=== PATIENT | female | born 1960 | race Caucasian/White ===

== ENCOUNTER 2017-04-19 21:51 | Emergency (ER) | payer OTHER ==
[~2017-04-19] VITALS: Ht 170.2 cm; Wt 102.1 kg
[2017-04-19 22:43] LABS: Basophils # (auto) 0 uL; CONDITION Y; Eosinophils # (auto) 0.1 uL; Eosinophils % (auto) 0.4 % (0.0-7.0); Hematocrit 44.3 % (36.0-46.0); Hemoglobin 14.8 g/dL (12.2-16.2); Lymphocytes # (auto) 1.5 uL; Lymphocytes % (auto) 8.4 % (10.0-50.0); Mean Corpuscular Hemoglobin 30.3 pg (28.0-32.0); Mean Corpuscular Hgb Conc. 33.4 g/dL (32.0-36.0); Mean Corpuscular Volume 90.8 fL (80.0-100.0); Monocytes # (auto) 1.4 uL; Monocytes % (auto) 7.9 % (0.0-12.0); Neutrophils % (auto) 83.3 % (37.0-80.0); Platelet Count (auto) 369 10^3/uL (140-450); Red Cell Distribution Width 15.2 % (11.6-16.0); White Blood Cell 18.1 10^3/uL (4.4-10.8)
[2017-04-19 23:02] LABS: Albumin 3.1 g/dL (3.4-5.0); BUN/Creatinine Ratio 35.6; Calcium 9.1 mg/dL (8.5-10.1); Potassium 3.5 mmol/L (3.5-5.1)
[2017-04-19 23:05] LABS: Bilirubin, Total 0.5 mg/dL (0.2-1.0); Total Protein 6.7 g/dL (6.4-8.2)
[2017-04-20 00:02] LABS: Urine Bilirubin Negative (Negative); Urine Blood 3+ /uL (Negative); Urine Color Red (Yellow); Urine Glucose 3+ mg/dL (Normal); Urine Ketone Negative (Negative); Urine Nitrite Negative (Negative); Urine RBC 38 /hpf (0 - 4); Urine Urobilinogen Normal (Negative); Urine pH 5.5 (5.0-8.0)
[2017-04-20] MEDS ORDERED: cefTRIAXone 1GM/50ML D5W 50 ML IV ONE (02:15)
[2017-04-20 06:12] VITALS: BP 106/67
== END 2017-04-20 06:42 | disposition home or self-care (01) ==
LOC: EDBD 21:51 → ER 21:55
DX: K80.20 Calculus of gallbladder without cholecystitis without obstruction (principal); N20.0 Calculus of kidney; Z88.0 Allergy status to penicillin; K21.9 Gastro-esophageal reflux disease without esophagitis; E11.9 Type 2 diabetes mellitus without complications
CPT/HCPCS: 36415; 74176; 80053; 81001; 83605; 85025; 96365; 99285; J0696

== ENCOUNTER 2022-07-06 14:30 | Inpatient (IN) | payer OTHER ==
[~2022-07-06] VITALS: Ht 160 cm; Wt 108.5 kg
[2022-07-06] MEDS ORDERED: ALBUTEROL SULF 2.5 MG/0.5ML(0.5%) NEB SOLN HHN ONE (15:15)
[2022-07-06] MEDS ORDERED: IPRATROPIUM BROM 0.5 MG/2.5ML INH SOL HHN ONE (15:15)
[2022-07-06] MEDS ORDERED: methylPREDNISolone SOD SUCC 125 MG/2 ML VL IV ONE (15:15)
[2022-07-06 16:58] LABS: Basophils # (auto) 0.1 10 ^3/uL (0-0.2); Basophils % (auto) 0.8 % (0.0-2.0); Eosinophils # (auto) 0 10 ^3/uL (0-0.8); Eosinophils % (auto) 0.2 % (0.0-7.0); Hematocrit 38.3 % (36.0-46.0); Hemoglobin 12.2 g/dL (12.2-16.2); Lymphocytes # (auto) 0.7 10 ^3/uL (0.4-5.4); Lymphocytes % (auto) 6.1 % (10.0-50.0); Mean Corpuscular Hemoglobin 25.6 pg (28.0-32.0); Mean Corpuscular Hgb Conc. 31.8 g/dL (32.0-36.0); Mean Corpuscular Volume 80.5 fL (80.0-100.0); Monocytes # (auto) 1.3 10 ^3/uL (0-1.3); Monocytes % (auto) 11.6 % (0.0-12.0); Neutrophils # (auto) 8.8 10 ^3/uL (1.6-8.6); Neutrophils % (auto) 81.3 % (37.0-80.0); Red Blood Cells 4.76 10^6/uL (4.0-5.20); Red Cell Distribution Width 17.4 % (11.8-14.3); White Blood Cell 10.8 10^3/uL (4.4-10.8)
[2022-07-06] MEDS ORDERED: FUROSEMIDE 40 MG/4 ML VIAL IV ONE (17:00)
[2022-07-06 17:22] LABS: Albumin 2.9 g/dL (3.4-5.0); BUN/Creatinine Ratio 24.4; Calcium 8.5 mg/dL (8.5-10.1); Magnesium 2.1 mg/dL (1.6-2.6); Potassium 3.8 mmol/L (3.5-5.1)
[2022-07-06 17:24] LABS: Bilirubin, Total 0.6 mg/dL (0.2-1.0); Total Protein 6.8 g/dL (6.4-8.2)
[2022-07-06] MEDS ORDERED: AZITHROMYCIN 500MG/ 250ML 250 ML IV ONE (20:30)
[2022-07-06] MEDS ORDERED: ALBUTEROL SULF 2.5 MG/0.5ML(0.5%) NEB SOLN NEB ONE (20:45)
[2022-07-06] MEDS ORDERED: MORPHINE SULFATE INJ 2 MG/ml SYRG IV PRN (21:15)
[2022-07-06] MEDS ORDERED: NITROGLYCERIN 0.4 MG SL TAB SL PRN (21:15)
[2022-07-06] MEDS ORDERED: TEMAZEPAM 15 MG CAP PO PRN (21:45)
[2022-07-06] MEDS ORDERED: DEXTROSE (50%) 50ML SYRG IV PRN (21:45)
[2022-07-06] MEDS ORDERED: ONDANSETRON HCL 4 MG/2 ML VIAL IV PRN (21:45)
[2022-07-06] MEDS: ATORVASTATIN 20 MG TAB PO SCH (22:40)
[2022-07-06] MEDS: ASCORBIC ACID 500 MG TAB PO SCH (22:40)
[2022-07-06] MEDS: InsuLIN REG 1unit/0.01ml Soln (100units/ml) SC SCH (22:52)
[2022-07-06] MEDS: ACCU-CHEK COMFORT CURVE STRIP VI SCH (22:54)
[2022-07-07 00:03] VITALS: BP 125/67
[2022-07-07] MEDS: IPRATROPIUM BROM 0.5 MG/2.5ML INH SOL NEB SCH ×3 (06:00→18:42)
[2022-07-07] MEDS: ALBUTEROL SULF 2.5 MG/0.5ML(0.5%) NEB SOLN NEB SCH ×3 (06:00→18:42)
[2022-07-07] MEDS: ACCU-CHEK COMFORT CURVE STRIP VI SCH ×3 (06:25→17:49)
[2022-07-07] MEDS: InsuLIN REG 1unit/0.01ml Soln (100units/ml) SC SCH ×3 (06:29→17:54)
[2022-07-07 06:47] LABS: Basophils # (auto) 0.1 10 ^3/uL (0-0.2); Eosinophils # (auto) 0 10 ^3/uL (0-0.8); Hemoglobin 11.8 g/dL (12.2-16.2); Lymphocytes # (auto) 0.2 10 ^3/uL (0.4-5.4); Lymphocytes % (auto) 1.6 % (10.0-50.0); Monocytes # (auto) 1.1 10 ^3/uL (0-1.3)
[2022-07-07 06:49] LABS: Basophils % (auto) 0.6 % (0.0-2.0); Hematocrit 36.8 % (36.0-46.0); Mean Corpuscular Hemoglobin 25.6 pg (28.0-32.0); Mean Corpuscular Hgb Conc. 32.2 g/dL (32.0-36.0); Mean Corpuscular Volume 79.5 fL (80.0-100.0); Neutrophils # (auto) 11.1 10 ^3/uL (1.6-8.6); Neutrophils % (auto) 88.8 % (37.0-80.0); Red Blood Cells 4.63 10^6/uL (4.0-5.20); Red Cell Distribution Width 17.1 % (11.8-14.3); White Blood Cell 12.4 10^3/uL (4.4-10.8)
[2022-07-07 07:13] LABS: Albumin 2.7 g/dL (3.4-5.0); BUN/Creatinine Ratio 31.3; Calcium 8.9 mg/dL (8.5-10.1); Potassium 3.9 mmol/L (3.5-5.1)
[2022-07-07 07:22] LABS: Bilirubin, Total 0.5 mg/dL (0.2-1.0); Total Protein 7.5 g/dL (6.4-8.2)
[2022-07-07] MEDS: AZITHROMYCIN 500MG/ 250ML 250 ML IV SCH (09:58)
[2022-07-07] MEDS: dilTIAZem HCL 180MG ER CAP PO SCH (10:00)
[2022-07-07] MEDS ORDERED: ENOXAPARIN SOD 40 MG/0.4 ML SYRINGE SC SCH (10:00)
[2022-07-07] MEDS: DexAMETHasone SOD PHOS 10MG/1ML VIAL INJ IV SCH (10:00)
[2022-07-07] MEDS: ASPirin 81 mg TAB PO SCH (10:08)
[2022-07-07] MEDS: PANTOPRAZOLE 40 MG TAB PO SCH (10:09)
[2022-07-07] MEDS: ZINC SULFATE 220mg CAP or TAB PO SCH (10:09)
[2022-07-07] MEDS: MULTIPLE VITAMIN TAB PO SCH (10:09)
[2022-07-07] MEDS: FUROSEMIDE 40 MG TAB PO SCH (10:10)
[2022-07-07] MEDS: ASCORBIC ACID 500 MG TAB PO SCH (10:10)
[2022-07-07] MEDS: DIGOXIN 0.125 MG TAB PO SCH (10:10)
[2022-07-07] MEDS: DABIGATRAN 75 MG CAP PO SCH ×2 (10:17→22:00)
[2022-07-07] MEDS ORDERED: PATIENTS OWN MEDICATION (REMDESIVIR 200 MG) IV SCH (11:00)
[2022-07-07] MEDS ORDERED: REMDESIVIR PER PHARMACY 0 ML IV SCH (12:00)
[2022-07-07] MEDS ORDERED: REMDESIVIR 200 MG in NS 210ml LOADING DOSE ADULT IV ONE (12:00)
[2022-07-07] MEDS ORDERED: REMDESIVIR 100mg 100 MG in SODIUM CHL 0.9% 230 ML IV SCH (15:00)
[2022-07-08] VITALS (38 sets, daily range): BP systolic 94–138; BP diastolic 25–69
[2022-07-08] MEDS: ATORVASTATIN 20 MG TAB PO SCH ×2 (00:55→22:08)
[2022-07-08] MEDS: ASCORBIC ACID 500 MG TAB PO SCH ×3 (00:55→22:08)
[2022-07-08] MEDS: InsuLIN REG 1unit/0.01ml Soln (100units/ml) SC SCH ×5 (00:56→22:11)
[2022-07-08] MEDS: ACCU-CHEK COMFORT CURVE STRIP VI SCH ×5 (00:57→22:09)
[2022-07-08] MEDS ORDERED: ROCURONIUM 10MG/ML 10ML VIAL IV ONE ×2 (05:02→05:15)
[2022-07-08] MEDS ORDERED: KETAMINE HCL 10 ML ONE (05:02)
[2022-07-08] MEDS ORDERED: KETAMINE 50mg/ML 10ml Vial (500mg/10ml) IV ONE (05:15)
[2022-07-08] MEDS: MIDAZOLAM DRIP 50 mg/50mL 50 ML IV SCH ×5 (05:45→22:50)
[2022-07-08] MEDS: fentaNYL Drip 2500mCg/250mlNS 250 ML IV SCH (05:45)
[2022-07-08] MEDS: ALBUTEROL SULF 2.5 MG/0.5ML(0.5%) NEB SOLN NEB SCH ×3 (06:00→18:20)
[2022-07-08] MEDS: IPRATROPIUM BROM 0.5 MG/2.5ML INH SOL NEB SCH ×3 (06:00→18:20)
[2022-07-08] MEDS ORDERED: ACETAMINOPHEN 650 MG RECT SUPP PR PRN (06:50)
[2022-07-08 09:11] LABS: Hemoglobin 11.9 g/dL (12.2-16.2); White Blood Cell 15.8 10^3/uL (4.4-10.8)
[2022-07-08 09:13] LABS: Hematocrit 37.5 % (36.0-46.0); Mean Corpuscular Hemoglobin 25.3 pg (28.0-32.0); Mean Corpuscular Hgb Conc. 31.8 g/dL (32.0-36.0); Mean Corpuscular Volume 79.4 fL (80.0-100.0); Red Blood Cells 4.72 10^6/uL (4.0-5.20)
[2022-07-08 09:19] LABS: Basophils % (manual) 0 (0.0-2.0); Blast Cells 0; Metamyelocytes % 0; Myelocytes % 0; Promyelocytes % 0; Reactive Lymphocytes 0
[2022-07-08 09:39] LABS: BUN/Creatinine Ratio 40.3; Calcium 8.5 mg/dL (8.5-10.1)
[2022-07-08 09:50] LABS: Band Neutrophils % (manual) 13; Eosinophils % (manual) 1 (0-7); Lymphocytes % (manual) 2 (10.0-50.0); Monocytes % (manual) 10 (0-12)
[2022-07-08 11:08] LABS: Albumin 2.5 g/dL (3.4-5.0); Bilirubin, Direct 0.3 mg/dL (0-0.2); Bilirubin, Total 0.7 mg/dL (0.2-1.0); Total Protein 6.4 g/dL (6.4-8.2)
[2022-07-08] MEDS: DexAMETHasone SOD PHOS 10MG/1ML VIAL INJ IV SCH (11:30)
[2022-07-08] MEDS: PANTOPRAZOLE 40 MG TAB PO SCH (11:31)
[2022-07-08] MEDS: AZITHROMYCIN 500MG/ 250ML 250 ML IV SCH (11:32)
[2022-07-08] MEDS: DIGOXIN 0.125 MG TAB PO SCH (11:32)
[2022-07-08] MEDS: FUROSEMIDE 40 MG TAB PO SCH (11:34)
[2022-07-08] MEDS: ASPirin 81 mg TAB PO SCH (11:53)
[2022-07-08] MEDS: MULTIPLE VITAMIN TAB PO SCH (11:53)
[2022-07-08] MEDS: ZINC SULFATE 220mg CAP or TAB PO SCH (11:53)
[2022-07-08] MEDS: dilTIAZem HCL 180MG ER CAP PO SCH (11:53)
[2022-07-08] MEDS: DABIGATRAN 75 MG CAP PO SCH ×3 (11:53→22:08)
[2022-07-08] MEDS: NOREPINEPHRINE 8 MG/250ML KIT 250 ML IV SCH (16:42)
[2022-07-08] MEDS: REMDESIVIR 100mg 100 MG in SODIUM CHL 0.9% 230 ML IV SCH (19:31)
[2022-07-08] MEDS ORDERED: DABI150C5 PO (19:40)
[2022-07-08] MEDS ORDERED: DIGO0.12 PO (19:40)
[2022-07-08] MEDS ORDERED: POTA10TA51 PO (19:40)
[2022-07-08] MEDS ORDERED: AZAT50TA2 PO (19:40)
[2022-07-08] MEDS ORDERED: DILT60TA PO (19:40)
[2022-07-08] MEDS ORDERED: AMIO200T33 PO (19:40)
[2022-07-08] MEDS ORDERED: ATOR-47 PO (19:40)
[2022-07-08] MEDS ORDERED: ERGO50003 PO (19:40)
[2022-07-08] MEDS ORDERED: METF-370 PO (19:40)
[2022-07-09] VITALS (98 sets, daily range): BP systolic 91–162; BP diastolic 28–66
[2022-07-09] MEDS: MIDAZOLAM DRIP 50 mg/50mL 50 ML IV SCH ×5 (01:50→19:50)
[2022-07-09 04:30] LABS: Calcium 8.7 mg/dL (8.5-10.1)
[2022-07-09 04:36] LABS: BUN/Creatinine Ratio 51.6; Bilirubin, Total 0.8 mg/dL (0.2-1.0); Total Protein 6.6 g/dL (6.4-8.2)
[2022-07-09 04:42] LABS: Potassium 4.7 mmol/L (3.5-5.1)
[2022-07-09] MEDS: fentaNYL Drip 2500mCg/250mlNS 250 ML IV SCH ×2 (05:30→05:45)
[2022-07-09] MEDS: IPRATROPIUM BROM 0.5 MG/2.5ML INH SOL NEB SCH ×3 (06:55→18:29)
[2022-07-09] MEDS: ALBUTEROL SULF 2.5 MG/0.5ML(0.5%) NEB SOLN NEB SCH ×3 (06:55→18:29)
[2022-07-09] MEDS: ACCU-CHEK COMFORT CURVE STRIP VI SCH ×4 (06:56→22:31)
[2022-07-09] MEDS: InsuLIN REG 1unit/0.01ml Soln (100units/ml) SC SCH ×4 (06:56→23:03)
[2022-07-09] MEDS: ASPirin 81 mg TAB PO SCH (10:11)
[2022-07-09] MEDS: DexAMETHasone SOD PHOS 10MG/1ML VIAL INJ IV SCH (10:11)
[2022-07-09] MEDS: DIGOXIN 0.125 MG TAB PO SCH (10:17)
[2022-07-09] MEDS: ZINC SULFATE 220mg CAP or TAB PO SCH (10:17)
[2022-07-09] MEDS: ASCORBIC ACID 500 MG TAB PO SCH ×2 (10:17→22:31)
[2022-07-09] MEDS: AZITHROMYCIN 500MG/ 250ML 250 ML IV SCH (10:18)
[2022-07-09] MEDS: MULTIPLE VITAMIN TAB PO SCH (10:18)
[2022-07-09] MEDS: FUROSEMIDE 40 MG TAB PO SCH (10:18)
[2022-07-09] MEDS: PANTOPRAZOLE 40 MG TAB PO SCH (10:18)
[2022-07-09] MEDS: NOREPINEPHRINE 8 MG/250ML KIT 250 ML IV SCH (11:00)
[2022-07-09] MEDS: PANTOPRAZOLE 40 MG/10 ML VIAL INJ IV SCH (11:51)
[2022-07-09] MEDS: DABIGATRAN 75 MG CAP PO SCH ×2 (13:43→22:31)
[2022-07-09] MEDS: dilTIAZem HCL 60 MG TAB NG SCH ×2 (13:52→22:00)
[2022-07-09] MEDS: REMDESIVIR 100mg 100 MG in SODIUM CHL 0.9% 230 ML IV SCH (15:08)
[2022-07-09] MEDS: ATORVASTATIN 20 MG TAB PO SCH (22:30)
[2022-07-10] VITALS (70 sets, daily range): BP systolic 90–133; BP diastolic 24–40
[2022-07-10] MEDS: MIDAZOLAM DRIP 50 mg/50mL 50 ML IV SCH ×5 (00:24→20:17)
[2022-07-10] MEDS: ACETAMINOPHEN 325 MG TAB PO PRN ×2 (01:34→10:54)
[2022-07-10 05:46] LABS: Potassium 4.3 mmol/L (3.5-5.1)
[2022-07-10 05:49] LABS: Albumin 1.9 g/dL (3.4-5.0); BUN/Creatinine Ratio 55.3; Calcium 8.6 mg/dL (8.5-10.1)
[2022-07-10] MEDS: fentaNYL Drip 2500mCg/250mlNS 250 ML IV SCH (05:50)
[2022-07-10 05:53] LABS: Bilirubin, Total 0.6 mg/dL (0.2-1.0); Total Protein 5.4 g/dL (6.4-8.2)
[2022-07-10] MEDS: dilTIAZem HCL 60 MG TAB NG SCH ×3 (05:59→22:00)
[2022-07-10] MEDS: ACCU-CHEK COMFORT CURVE STRIP VI SCH ×4 (06:28→22:25)
[2022-07-10] MEDS: InsuLIN REG 1unit/0.01ml Soln (100units/ml) SC SCH ×4 (06:29→22:28)
[2022-07-10] MEDS: IPRATROPIUM BROM 0.5 MG/2.5ML INH SOL NEB SCH ×4 (06:52→22:42)
[2022-07-10] MEDS: ALBUTEROL SULF 2.5 MG/0.5ML(0.5%) NEB SOLN NEB SCH ×4 (06:52→22:42)
[2022-07-10] MEDS: DexAMETHasone SOD PHOS 10MG/1ML VIAL INJ IV SCH (10:33)
[2022-07-10] MEDS: PANTOPRAZOLE 40 MG/10 ML VIAL INJ IV SCH (10:33)
[2022-07-10] MEDS: ASPirin 81 mg TAB PO SCH (10:33)
[2022-07-10] MEDS: DABIGATRAN 75 MG CAP PO SCH (10:34)
[2022-07-10] MEDS: ASCORBIC ACID 500 MG TAB PO SCH ×2 (10:34→22:25)
[2022-07-10] MEDS: FUROSEMIDE 40 MG TAB PO SCH (10:35)
[2022-07-10] MEDS: MULTIPLE VITAMIN TAB PO SCH (10:35)
[2022-07-10] MEDS: ZINC SULFATE 220mg CAP or TAB PO SCH (10:36)
[2022-07-10] MEDS: AZITHROMYCIN 500MG/ 250ML 250 ML IV SCH (10:36)
[2022-07-10] MEDS: DIGOXIN 0.125 MG TAB PO SCH (10:37)
[2022-07-10] MEDS: NOREPINEPHRINE 8 MG/250ML KIT 250 ML IV SCH (15:06)
[2022-07-10] MEDS: REMDESIVIR 100mg 100 MG in SODIUM CHL 0.9% 230 ML IV SCH (15:35)
[2022-07-10 16:53] LABS: Basophils # (auto) 0.1 10 ^3/uL (0-0.2); Basophils % (auto) 0.3 % (0.0-2.0); Eosinophils # (auto) 0 10 ^3/uL (0-0.8); Eosinophils % (auto) 0.1 % (0.0-7.0); Hematocrit 38.5 % (36.0-46.0); Hemoglobin 11.7 g/dL (12.2-16.2); Lymphocytes # (auto) 0.2 10 ^3/uL (0.4-5.4); Lymphocytes % (auto) 0.8 % (10.0-50.0); Mean Corpuscular Hgb Conc. 30.3 g/dL (32.0-36.0); Mean Corpuscular Volume 82.5 fL (80.0-100.0); Monocytes % (auto) 6.7 % (0.0-12.0); Neutrophils # (auto) 26.8 10 ^3/uL (1.6-8.6); Neutrophils % (auto) 92.1 % (37.0-80.0); Nucleated Red Blood Cells % 0.2 %; Red Blood Cells 4.67 10^6/uL (4.0-5.20); White Blood Cell 29.1 10^3/uL (4.4-10.8)
[2022-07-10 17:11] LABS: INR 1.18 (0.9-1.15); Partial Thromboplastin Time 30.8 sec (24.6-33.4)
[2022-07-10] MEDS ORDERED: VANCOMYCIN PER PHARMACY 0 MG IV SCH (19:15)
[2022-07-10] MEDS: VANCOMYCIN 1GM/250ML 250 ML IV SCH (20:17)
[2022-07-10] MEDS: ATORVASTATIN 20 MG TAB PO SCH (22:25)
[2022-07-10] MEDS ORDERED: HEPARIN SODIUM (PORCINE) 5000 UNITS/ML 1ML VIAL IV ONE (23:00)
[2022-07-10] MEDS ORDERED: HEPARIN DRIP/D5W 100UNITS/ML 250 ML IV SCH (23:00)
[2022-07-10 23:40] LABS: INR 1.18 (0.9-1.15); Partial Thromboplastin Time 39.9 sec (24.6-33.4)
[2022-07-11] VITALS (87 sets, daily range): BP systolic 95–124; BP diastolic 26–44
[2022-07-11] MEDS: MIDAZOLAM DRIP 50 mg/50mL 50 ML IV SCH ×4 (01:40→21:53)
[2022-07-11] MEDS: IPRATROPIUM BROM 0.5 MG/2.5ML INH SOL NEB SCH ×6 (02:08→22:22)
[2022-07-11] MEDS: ALBUTEROL SULF 2.5 MG/0.5ML(0.5%) NEB SOLN NEB SCH ×6 (02:08→22:22)
[2022-07-11 03:51] LABS: Hematocrit 31.7 % (36.0-46.0); Hemoglobin 10.1 g/dL (12.2-16.2); Mean Corpuscular Hemoglobin 25.4 pg (28.0-32.0); Mean Corpuscular Volume 79.3 fL (80.0-100.0); Red Blood Cells 3.99 10^6/uL (4.0-5.20); Red Cell Distribution Width 17.5 % (11.8-14.3)
[2022-07-11 04:22] LABS: Basophils % (manual) 0 (0.0-2.0); Blast Cells 0; Eosinophils % (manual) 0 (0-7); Myelocytes % 0; Promyelocytes % 0; Reactive Lymphocytes 0
[2022-07-11] MEDS: dilTIAZem HCL 60 MG TAB NG SCH (06:00)
[2022-07-11] MEDS: fentaNYL Drip 2500mCg/250mlNS 250 ML IV SCH (06:06)
[2022-07-11] MEDS: VANCOMYCIN 1GM/250ML 250 ML IV SCH ×3 (06:06→20:55)
[2022-07-11 06:13] LABS: INR 1.24 (0.9-1.15)
[2022-07-11 06:15] LABS: Partial Thromboplastin Time > 139.0 sec (24.6-33.4)
[2022-07-11] MEDS: InsuLIN REG 1unit/0.01ml Soln (100units/ml) SC SCH ×4 (06:37→23:57)
[2022-07-11] MEDS: ACCU-CHEK COMFORT CURVE STRIP VI SCH ×5 (06:38→23:56)
[2022-07-11 09:11] LABS: Band Neutrophils % (manual) 8; Lymphocytes % (manual) 1 (10.0-50.0); Metamyelocytes % 1; Monocytes % (manual) 3 (0-12)
[2022-07-11] MEDS: DIGOXIN 0.125 MG TAB PO SCH (10:00)
[2022-07-11] MEDS: PANTOPRAZOLE 40 MG/10 ML VIAL INJ IV SCH (10:14)
[2022-07-11] MEDS: AZITHROMYCIN 500MG/ 250ML 250 ML IV SCH (10:14)
[2022-07-11] MEDS: DexAMETHasone SOD PHOS 10MG/1ML VIAL INJ IV SCH (10:14)
[2022-07-11] MEDS: ASPirin 81 mg TAB PO SCH (10:15)
[2022-07-11] MEDS: MULTIPLE VITAMIN TAB PO SCH (10:15)
[2022-07-11] MEDS: ASCORBIC ACID 500 MG TAB PO SCH (10:15)
[2022-07-11] MEDS: ZINC SULFATE 220mg CAP or TAB PO SCH (10:15)
[2022-07-11] MEDS: FUROSEMIDE 40 MG TAB PO SCH (10:23)
[2022-07-11] MEDS ORDERED: CEFTRIAXONE SODIUM 2 GM in D5W 5% 50 ML IV ONE (12:30)
[2022-07-11] MEDS ORDERED: LIDOCAINE 1% (LOCAL ANESTH.) PF 5ml SDV ID ONE (15:15)
[2022-07-11] MEDS: REMDESIVIR 100mg 100 MG in SODIUM CHL 0.9% 230 ML IV SCH (16:08)
[2022-07-11] MEDS: NOREPINEPHRINE 8 MG/250ML KIT 250 ML IV SCH (16:23)
[2022-07-11] MEDS ORDERED: DEXTROSE (50%) 50ML SYRG IV PRN (17:00)
[2022-07-11] MEDS ORDERED: ACCU-CHEK COMFORT CURVE STRIP VI SCH (18:00)
[2022-07-11 18:29] LABS: Anion Gap 9 (5-15); Carbon Dioxide 28 mmol/L (21-32); Chloride 106 mmol/L (98-107); Potassium 4.1 mmol/L (3.5-5.1); Sodium 143 mmol/L (136-145)
[2022-07-11 18:30] LABS: Alanine Aminotransferase 29 U/L (13-56); Albumin 1.6 g/dL (3.4-5.0); Alkaline Phosphatase 84 U/L (45-117); Aspartate Aminotransferase 32 U/L (15-37); BUN/Creatinine Ratio 45.8; Bilirubin, Total 0.6 mg/dL (0.2-1.0); Blood Urea Nitrogen 22 mg/dL (7-18); GFR African American 168 mL/min; GFR Non-African American 139 mL/min; Glucose 297 mg/dL (74-106); Total Protein 6.1 g/dL (6.4-8.2)
[2022-07-11 18:49] LABS: Urine Amorphous Crystal FEW /hpf (None Seen); Urine Bacteria MOD /hpf (None Seen); Urine Blood Negative /uL (Negative); Urine Hyaline Cast FEW /lpf (0 - 2); Urine Mucus FEW (None Seen); Urine Specific Gravity 1.021 (1.001-1.035); Urine WBC 29 /hpf (0 - 5)
[2022-07-11] MEDS: SODIUM CHLOR 0.9% PF (SALINE LOCK) 10ML VIAL/SYR IV SCH (21:34)
[2022-07-11] MEDS: ENOXAPARIN SOD 100 MG/1 ML SYRINGE SC SCH (21:34)
[2022-07-11] MEDS: INSULIN LANTUS (GLARGINE) 1 /0.01ml (100units/ml) SC SCH (21:34)
[2022-07-12] VITALS (106 sets, daily range): BP systolic 103–147; BP diastolic 26–70
[2022-07-12] MEDS: IPRATROPIUM BROM 0.5 MG/2.5ML INH SOL NEB SCH ×6 (02:00→21:55)
[2022-07-12] MEDS: ALBUTEROL SULF 2.5 MG/0.5ML(0.5%) NEB SOLN NEB SCH ×6 (02:00→21:55)
[2022-07-12] MEDS: VANCOMYCIN 1GM/250ML 250 ML IV SCH ×3 (02:05→22:11)
[2022-07-12 04:01] LABS: Hematocrit 32.5 % (36.0-46.0); Hemoglobin 10.2 g/dL (12.2-16.2); Mean Corpuscular Hgb Conc. 31.4 g/dL (32.0-36.0); White Blood Cell 23.4 10^3/uL (4.4-10.8)
[2022-07-12 04:03] LABS: Mean Corpuscular Hemoglobin 24.7 pg (28.0-32.0); Mean Corpuscular Volume 78.6 fL (80.0-100.0); Red Blood Cells 4.14 10^6/uL (4.0-5.20); Red Cell Distribution Width 17.5 % (11.8-14.3)
[2022-07-12 04:23] LABS: Albumin 1.5 g/dL (3.4-5.0); BUN/Creatinine Ratio 44.4; Calcium 8.2 mg/dL (8.5-10.1); Potassium 4.5 mmol/L (3.5-5.1)
[2022-07-12 04:25] LABS: Basophils % (manual) 0 (0.0-2.0); Bilirubin, Total 0.4 mg/dL (0.2-1.0); Blast Cells 0; Eosinophils % (manual) 0 (0-7); Metamyelocytes % 0; Promyelocytes % 0; Reactive Lymphocytes 0; Total Protein 5.1 g/dL (6.4-8.2)
[2022-07-12] MEDS: InsuLIN REG 1unit/0.01ml Soln (100units/ml) SC SCH ×3 (06:29→18:21)
[2022-07-12] MEDS: ACCU-CHEK COMFORT CURVE STRIP VI SCH ×3 (06:29→17:53)
[2022-07-12] MEDS: INSULIN LANTUS (GLARGINE) 1 /0.01ml (100units/ml) SC SCH ×2 (06:30→22:12)
[2022-07-12] MEDS: MIDAZOLAM DRIP 50 mg/50mL 50 ML IV SCH ×2 (06:53→22:34)
[2022-07-12] MEDS: MULTIPLE VITAMIN TAB PO SCH (08:14)
[2022-07-12] MEDS: ENOXAPARIN SOD 100 MG/1 ML SYRINGE SC SCH ×2 (08:14→22:10)
[2022-07-12] MEDS: ZINC SULFATE 220mg CAP or TAB PO SCH (08:14)
[2022-07-12] MEDS: SODIUM CHLOR 0.9% PF (SALINE LOCK) 10ML VIAL/SYR IV SCH ×2 (08:16→22:12)
[2022-07-12 09:29] LABS: Band Neutrophils % (manual) 6; Lymphocytes % (manual) 2 (10.0-50.0); Monocytes % (manual) 5 (0-12); Myelocytes % 3
[2022-07-12] MEDS ORDERED: ATROPINE SULFATE 1 MG/1 ML VIAL ONE (10:24)
[2022-07-12] MEDS: NOREPINEPHRINE 8 MG/250ML KIT 250 ML IV SCH (11:00)
[2022-07-12] MEDS: CEFTRIAXONE SODIUM 2 GM in D5W 5% 50 ML IV SCH (12:08)
[2022-07-12] MEDS: PANTOPRAZOLE 40 MG/10 ML VIAL INJ IV SCH (12:08)
[2022-07-12] MEDS ORDERED: Glucerna 1.2 Cal 1Liter BOTTLE GT SCH (13:30)
[2022-07-12] MEDS ORDERED: METOCLOPRAMIDE HCL 5MG/ml INJ 2ml VIAL IV ONE (13:30)
[2022-07-12] MEDS: Glucerna 1.2 Cal 1Liter BOTTLE GT SCH (18:22)
[2022-07-12] MEDS ORDERED: Pro-Stat SF 30ml Vanilla GT SCH (22:00)
[2022-07-12] MEDS: METOCLOPRAMIDE HCL 5MG/ml INJ 2ml VIAL IV SCH (22:10)
[2022-07-12] MEDS: Pro-Stat SF 30ml Vanilla GT SCH (22:11)
[2022-07-13] VITALS (83 sets, daily range): BP systolic 95–133; BP diastolic 24–73
[2022-07-13] MEDS: ACCU-CHEK COMFORT CURVE STRIP VI SCH ×4 (00:08→18:23)
[2022-07-13] MEDS: InsuLIN REG 1unit/0.01ml Soln (100units/ml) SC SCH ×4 (00:08→18:26)
[2022-07-13] MEDS: ALBUTEROL SULF 2.5 MG/0.5ML(0.5%) NEB SOLN NEB SCH ×6 (02:00→22:40)
[2022-07-13] MEDS: IPRATROPIUM BROM 0.5 MG/2.5ML INH SOL NEB SCH ×6 (02:00→22:40)
[2022-07-13] MEDS: fentaNYL Drip 2500mCg/250mlNS 250 ML IV SCH (05:45)
[2022-07-13] MEDS: INSULIN LANTUS (GLARGINE) 1 /0.01ml (100units/ml) SC SCH ×2 (06:47→22:32)
[2022-07-13] MEDS: METOCLOPRAMIDE HCL 5MG/ml INJ 2ml VIAL IV SCH ×3 (06:47→22:20)
[2022-07-13] MEDS: Pro-Stat SF 30ml Vanilla GT SCH ×2 (10:35→22:24)
[2022-07-13] MEDS: VANCOMYCIN 1GM/250ML 250 ML IV SCH ×2 (10:35→18:23)
[2022-07-13] MEDS: ZINC SULFATE 220mg CAP or TAB PO SCH (10:36)
[2022-07-13] MEDS: PANTOPRAZOLE 40 MG/10 ML VIAL INJ IV SCH (10:36)
[2022-07-13] MEDS: MULTIPLE VITAMIN TAB PO SCH (10:36)
[2022-07-13] MEDS: SODIUM CHLOR 0.9% PF (SALINE LOCK) 10ML VIAL/SYR IV SCH ×2 (10:36→22:21)
[2022-07-13] MEDS: ENOXAPARIN SOD 100 MG/1 ML SYRINGE SC SCH ×2 (10:36→22:21)
[2022-07-13] MEDS: NOREPINEPHRINE 8 MG/250ML KIT 250 ML IV SCH (11:00)
[2022-07-13 11:18] LABS: White Blood Cell 19.9 10^3/uL (4.4-10.8)
[2022-07-13 11:20] LABS: Hematocrit 33.9 % (36.0-46.0); Hemoglobin 10.6 g/dL (12.2-16.2); Mean Corpuscular Hemoglobin 24.6 pg (28.0-32.0); Mean Corpuscular Hgb Conc. 31.3 g/dL (32.0-36.0); Mean Corpuscular Volume 78.4 fL (80.0-100.0); Red Blood Cells 4.32 10^6/uL (4.0-5.20); Red Cell Distribution Width 17.3 % (11.8-14.3)
[2022-07-13 11:32] LABS: Basophils % (manual) 0 (0.0-2.0); Blast Cells 0; Eosinophils % (manual) 0 (0-7); Myelocytes % 0; Promyelocytes % 0; Reactive Lymphocytes 0
[2022-07-13 11:50] LABS: Anion Gap 4 (5-15); Blood Urea Nitrogen 29 mg/dL (7-18); Calcium 8.9 mg/dL (8.5-10.1); Carbon Dioxide 34 mmol/L (21-32); Chloride 105 mmol/L (98-107); GFR African American 160 mL/min; GFR Non-African American 132 mL/min; Glucose 204 mg/dL (74-106); Potassium 4.1 mmol/L (3.5-5.1); Sodium 143 mmol/L (136-145)
[2022-07-13 12:20] LABS: Band Neutrophils % (manual) 2; Lymphocytes % (manual) 2 (10.0-50.0); Metamyelocytes % 2; Monocytes % (manual) 8 (0-12)
[2022-07-13] MEDS: CEFTRIAXONE SODIUM 2 GM in D5W 5% 50 ML IV SCH (13:07)
[2022-07-13] MEDS: MIDAZOLAM DRIP 50 mg/50mL 50 ML IV SCH ×2 (14:41→23:49)
[2022-07-13] MEDS: ACETAMINOPHEN 325 MG TAB PO PRN (22:21)
[2022-07-14] VITALS (77 sets, daily range): BP systolic 90–121; BP diastolic 24–86
[2022-07-14] MEDS: IPRATROPIUM BROM 0.5 MG/2.5ML INH SOL NEB SCH ×6 (02:32→22:26)
[2022-07-14] MEDS: ALBUTEROL SULF 2.5 MG/0.5ML(0.5%) NEB SOLN NEB SCH ×6 (02:32→22:26)
[2022-07-14] MEDS: VANCOMYCIN 1GM/250ML 250 ML IV SCH ×2 (04:00→13:43)
[2022-07-14 04:28] LABS: Hematocrit 33.8 % (36.0-46.0); Hemoglobin 10.6 g/dL (12.2-16.2); Mean Corpuscular Hgb Conc. 31.3 g/dL (32.0-36.0); Mean Corpuscular Volume 79.8 fL (80.0-100.0); Red Blood Cells 4.23 10^6/uL (4.0-5.20); Red Cell Distribution Width 16.9 % (11.8-14.3); White Blood Cell 15.5 10^3/uL (4.4-10.8)
[2022-07-14 04:34] LABS: Basophils % (manual) 0 (0.0-2.0); Blast Cells 0; Promyelocytes % 0; Reactive Lymphocytes 0
[2022-07-14 04:55] LABS: BUN/Creatinine Ratio 86.7; Calcium 8.2 mg/dL (8.5-10.1); Potassium 4.2 mmol/L (3.5-5.1)
[2022-07-14] MEDS: InsuLIN REG 1unit/0.01ml Soln (100units/ml) SC SCH ×4 (05:44→17:00)
[2022-07-14] MEDS: fentaNYL Drip 2500mCg/250mlNS 250 ML IV SCH ×2 (05:44→11:09)
[2022-07-14] MEDS: METOCLOPRAMIDE HCL 5MG/ml INJ 2ml VIAL IV SCH ×3 (05:44→20:40)
[2022-07-14] MEDS: ACCU-CHEK COMFORT CURVE STRIP VI SCH ×4 (06:00→17:00)
[2022-07-14] MEDS: INSULIN LANTUS (GLARGINE) 1 /0.01ml (100units/ml) SC SCH ×2 (06:41→21:13)
[2022-07-14 07:18] LABS: Band Neutrophils % (manual) 6; Eosinophils % (manual) 1 (0-7); Lymphocytes % (manual) 11 (10.0-50.0); Metamyelocytes % 2; Monocytes % (manual) 7 (0-12); Myelocytes % 1
[2022-07-14] MEDS: MIDAZOLAM DRIP 50 mg/50mL 50 ML IV SCH (08:00)
[2022-07-14] MEDS: MULTIPLE VITAMIN TAB PO SCH (09:00)
[2022-07-14] MEDS: SODIUM CHLOR 0.9% PF (SALINE LOCK) 10ML VIAL/SYR IV SCH ×2 (09:00→20:40)
[2022-07-14] MEDS: ENOXAPARIN SOD 100 MG/1 ML SYRINGE SC SCH ×2 (09:00→20:40)
[2022-07-14] MEDS: ZINC SULFATE 220mg CAP or TAB PO SCH (09:00)
[2022-07-14] MEDS: PANTOPRAZOLE 40 MG/10 ML VIAL INJ IV SCH (09:00)
[2022-07-14] MEDS: NOREPINEPHRINE 8 MG/250ML KIT 250 ML IV SCH (09:21)
[2022-07-14] MEDS: Pro-Stat SF 30ml Vanilla GT SCH ×2 (09:21→20:40)
[2022-07-14] MEDS: CEFTRIAXONE SODIUM 2 GM in D5W 5% 50 ML IV SCH (10:12)
[2022-07-14] MEDS ORDERED: FUROSEMIDE 20 MG/2 ML VIAL IV ONE (11:30)
[2022-07-14] MEDS: Glucerna 1.2 Cal 1Liter BOTTLE GT SCH (17:42)
[2022-07-15] VITALS (96 sets, daily range): BP systolic 80–127; BP diastolic 10–61
[2022-07-15] MEDS: VANCOMYCIN 1GM/250ML 250 ML IV SCH ×3 (00:04→20:46)
[2022-07-15] MEDS: MIDAZOLAM DRIP 50 mg/50mL 50 ML IV SCH ×5 (00:06→23:13)
[2022-07-15] MEDS: ACCU-CHEK COMFORT CURVE STRIP VI SCH ×5 (00:26→23:57)
[2022-07-15] MEDS: fentaNYL Drip 2500mCg/250mlNS 250 ML IV SCH ×2 (02:27→20:52)
[2022-07-15] MEDS: IPRATROPIUM BROM 0.5 MG/2.5ML INH SOL NEB SCH ×6 (03:51→22:09)
[2022-07-15] MEDS: ALBUTEROL SULF 2.5 MG/0.5ML(0.5%) NEB SOLN NEB SCH ×6 (03:51→22:09)
[2022-07-15 04:38] LABS: Hematocrit 32.5 % (36.0-46.0); Hemoglobin 10.4 g/dL (12.2-16.2); Mean Corpuscular Hemoglobin 25.6 pg (28.0-32.0); Mean Corpuscular Hgb Conc. 32.1 g/dL (32.0-36.0); Mean Corpuscular Volume 79.7 fL (80.0-100.0); Red Blood Cells 4.08 10^6/uL (4.0-5.20); Red Cell Distribution Width 16.5 % (11.8-14.3); White Blood Cell 15.1 10^3/uL (4.4-10.8)
[2022-07-15 04:39] LABS: Potassium 3.9 mmol/L (3.5-5.1)
[2022-07-15 04:41] LABS: Basophils % (manual) 0 (0.0-2.0); Blast Cells 0; Metamyelocytes % 0; Promyelocytes % 0; Reactive Lymphocytes 0
[2022-07-15 04:43] LABS: BUN/Creatinine Ratio 47.4
[2022-07-15 05:05] LABS: Band Neutrophils % (manual) 1; Eosinophils % (manual) 3 (0-7); Lymphocytes % (manual) 14 (10.0-50.0); Monocytes % (manual) 3 (0-12); Myelocytes % 3
[2022-07-15] MEDS: METOCLOPRAMIDE HCL 5MG/ml INJ 2ml VIAL IV SCH ×3 (05:58→20:46)
[2022-07-15] MEDS: InsuLIN REG 1unit/0.01ml Soln (100units/ml) SC SCH ×5 (06:00→23:56)
[2022-07-15] MEDS: INSULIN LANTUS (GLARGINE) 1 /0.01ml (100units/ml) SC SCH (06:22)
[2022-07-15] MEDS: PANTOPRAZOLE 40 MG/10 ML VIAL INJ IV SCH (08:53)
[2022-07-15] MEDS: Pro-Stat SF 30ml Vanilla GT SCH ×2 (08:53→22:00)
[2022-07-15] MEDS: ENOXAPARIN SOD 100 MG/1 ML SYRINGE SC SCH ×2 (08:53→20:46)
[2022-07-15] MEDS: ZINC SULFATE 220mg CAP or TAB PO SCH (08:54)
[2022-07-15] MEDS: MULTIPLE VITAMIN TAB PO SCH (08:54)
[2022-07-15] MEDS: SODIUM CHLOR 0.9% PF (SALINE LOCK) 10ML VIAL/SYR IV SCH ×2 (08:54→20:46)
[2022-07-15] MEDS: CEFTRIAXONE SODIUM 2 GM in D5W 5% 50 ML IV SCH (10:00)
[2022-07-15] MEDS: NOREPINEPHRINE 8 MG/250ML KIT 250 ML IV SCH ×2 (11:00→16:22)
[2022-07-15] MEDS ORDERED: POTASSIUM EFFERVESENT TAB 25 MEQ GT ONE (14:30)
[2022-07-15] MEDS ORDERED: FUROSEMIDE 20 MG/2 ML VIAL IV ONE (14:30)
[2022-07-15] MEDS ORDERED: DOPamine 1600MCG/ML D5W 250 ML IV SCH (17:00)
[2022-07-15] MEDS: DOPamine 1600MCG/ML D5W 250 ML IV SCH (17:38)
[2022-07-15] MEDS: ACETAMINOPHEN 325 MG TAB PO PRN (23:14)
[2022-07-15] MEDS: Glucerna 1.2 Cal 1Liter BOTTLE GT SCH (23:21)
[2022-07-16] VITALS (67 sets, daily range): BP systolic 86–136; BP diastolic 14–86
[2022-07-16] MEDS: ALBUTEROL SULF 2.5 MG/0.5ML(0.5%) NEB SOLN NEB SCH ×6 (02:16→22:19)
[2022-07-16] MEDS: IPRATROPIUM BROM 0.5 MG/2.5ML INH SOL NEB SCH ×6 (02:16→22:19)
[2022-07-16 04:44] LABS: Hemoglobin 10.6 g/dL (12.2-16.2); White Blood Cell 15.1 10^3/uL (4.4-10.8)
[2022-07-16 04:45] LABS: Hematocrit 33.8 % (36.0-46.0); Mean Corpuscular Hgb Conc. 31.3 g/dL (32.0-36.0); Mean Corpuscular Volume 79.6 fL (80.0-100.0); Red Blood Cells 4.24 10^6/uL (4.0-5.20); Red Cell Distribution Width 16.8 % (11.8-14.3)
[2022-07-16 04:50] LABS: Basophils % (manual) 0 (0.0-2.0); Blast Cells 0; Eosinophils % (manual) 0 (0-7); Myelocytes % 0; Promyelocytes % 0; Reactive Lymphocytes 0
[2022-07-16] MEDS: DOPamine 1600MCG/ML D5W 250 ML IV SCH ×2 (05:11→12:46)
[2022-07-16 05:22] LABS: Albumin 1.6 g/dL (3.4-5.0); Calcium 8.6 mg/dL (8.5-10.1); Potassium 3.3 mmol/L (3.5-5.1)
[2022-07-16 05:26] LABS: BUN/Creatinine Ratio 30.6; Bilirubin, Total 0.5 mg/dL (0.2-1.0); Total Protein 6.6 g/dL (6.4-8.2)
[2022-07-16] MEDS: METOCLOPRAMIDE HCL 5MG/ml INJ 2ml VIAL IV SCH ×3 (05:33→20:41)
[2022-07-16] MEDS: VANCOMYCIN 1GM/250ML 250 ML IV SCH ×2 (05:34→17:22)
[2022-07-16] MEDS: MIDAZOLAM DRIP 50 mg/50mL 50 ML IV SCH ×2 (05:36→20:40)
[2022-07-16] MEDS: ACCU-CHEK COMFORT CURVE STRIP VI SCH ×3 (06:30→17:47)
[2022-07-16] MEDS: InsuLIN REG 1unit/0.01ml Soln (100units/ml) SC SCH ×3 (06:30→18:00)
[2022-07-16 08:31] LABS: Band Neutrophils % (manual) 10; Lymphocytes % (manual) 5 (10.0-50.0); Metamyelocytes % 2; Monocytes % (manual) 4 (0-12)
[2022-07-16] MEDS: ZINC SULFATE 220mg CAP or TAB PO SCH (10:40)
[2022-07-16] MEDS: PANTOPRAZOLE 40 MG/10 ML VIAL INJ IV SCH (10:40)
[2022-07-16] MEDS: MULTIPLE VITAMIN TAB PO SCH (10:41)
[2022-07-16] MEDS: SODIUM CHLOR 0.9% PF (SALINE LOCK) 10ML VIAL/SYR IV SCH ×2 (10:41→20:41)
[2022-07-16] MEDS: ENOXAPARIN SOD 100 MG/1 ML SYRINGE SC SCH ×2 (10:41→20:41)
[2022-07-16] MEDS: CEFTRIAXONE SODIUM 2 GM in D5W 5% 50 ML IV SCH (10:45)
[2022-07-16] MEDS: Pro-Stat SF 30ml Vanilla GT SCH ×2 (10:52→20:41)
[2022-07-16] MEDS: fentaNYL Drip 2500mCg/250mlNS 250 ML IV SCH (10:55)
[2022-07-16] MEDS: POTASSIUM CHL 20MEQ/100ML 100 ML IV SCH ×2 (11:53→14:30)
[2022-07-17] VITALS (107 sets, daily range): BP systolic 105–170; BP diastolic 46–76
[2022-07-17] MEDS: MIDAZOLAM DRIP 50 mg/50mL 50 ML IV SCH (01:00)
[2022-07-17] MEDS: VANCOMYCIN 1GM/250ML 250 ML IV SCH ×3 (02:13→21:49)
[2022-07-17] MEDS: IPRATROPIUM BROM 0.5 MG/2.5ML INH SOL NEB SCH ×6 (02:24→22:43)
[2022-07-17] MEDS: ALBUTEROL SULF 2.5 MG/0.5ML(0.5%) NEB SOLN NEB SCH ×6 (02:24→22:43)
[2022-07-17 04:44] LABS: Red Cell Distribution Width 16.8 % (11.8-14.3)
[2022-07-17 04:47] LABS: Hematocrit 31.3 % (36.0-46.0); Mean Corpuscular Hemoglobin 25.5 pg (28.0-32.0); Mean Corpuscular Hgb Conc. 31.8 g/dL (32.0-36.0); Mean Corpuscular Volume 80.2 fL (80.0-100.0); Red Blood Cells 3.91 10^6/uL (4.0-5.20)
[2022-07-17 04:58] LABS: Albumin 1.6 g/dL (3.4-5.0); Calcium 8.3 mg/dL (8.5-10.1); Potassium 4.5 mmol/L (3.5-5.1)
[2022-07-17 05:01] LABS: BUN/Creatinine Ratio 22.4; Bilirubin, Total 0.5 mg/dL (0.2-1.0); Total Protein 5.9 g/dL (6.4-8.2)
[2022-07-17 05:02] LABS: Basophils % (manual) 0 (0.0-2.0); Blast Cells 0; Reactive Lymphocytes 0
[2022-07-17] MEDS: DOPamine 1600MCG/ML D5W 250 ML IV SCH ×2 (05:42→21:49)
[2022-07-17] MEDS: ACCU-CHEK COMFORT CURVE STRIP VI SCH ×4 (05:47→17:56)
[2022-07-17] MEDS: InsuLIN REG 1unit/0.01ml Soln (100units/ml) SC SCH ×4 (05:47→17:56)
[2022-07-17] MEDS: METOCLOPRAMIDE HCL 5MG/ml INJ 2ml VIAL IV SCH ×3 (05:47→21:49)
[2022-07-17] MEDS: CEFTRIAXONE SODIUM 2 GM in D5W 5% 50 ML IV SCH (08:18)
[2022-07-17] MEDS: ENOXAPARIN SOD 100 MG/1 ML SYRINGE SC SCH ×2 (08:18→21:49)
[2022-07-17] MEDS: ZINC SULFATE 220mg CAP or TAB PO SCH (08:19)
[2022-07-17] MEDS: MULTIPLE VITAMIN TAB PO SCH (08:20)
[2022-07-17] MEDS: PANTOPRAZOLE 40 MG/10 ML VIAL INJ IV SCH (08:21)
[2022-07-17] MEDS: SODIUM CHLOR 0.9% PF (SALINE LOCK) 10ML VIAL/SYR IV SCH ×2 (08:21→21:50)
[2022-07-17] MEDS ORDERED: FUROSEMIDE 40 MG/4 ML VIAL ONE (08:33)
[2022-07-17 08:41] LABS: Band Neutrophils % (manual) 7; Eosinophils % (manual) 4 (0-7); Lymphocytes % (manual) 14 (10.0-50.0); Metamyelocytes % 2; Monocytes % (manual) 14 (0-12); Myelocytes % 1; Promyelocytes % 1
[2022-07-17] MEDS ORDERED: FUROSEMIDE 40 MG/4 ML VIAL IV ONE (09:00)
[2022-07-17] MEDS: Pro-Stat SF 30ml Vanilla GT SCH ×2 (09:25→21:49)
[2022-07-17] MEDS: NOREPINEPHRINE 8 MG/250ML KIT 250 ML IV SCH (11:00)
[2022-07-17] MEDS ORDERED: hydrALAZINE HCL 20 MG/ML VL IV PRN (18:30)
[2022-07-18] VITALS (102 sets, daily range): BP systolic 98–166; BP diastolic 41–95
[2022-07-18] MEDS: ACCU-CHEK COMFORT CURVE STRIP VI SCH ×5 (00:23→23:42)
[2022-07-18] MEDS: ALBUTEROL SULF 2.5 MG/0.5ML(0.5%) NEB SOLN NEB SCH ×6 (02:51→22:28)
[2022-07-18] MEDS: IPRATROPIUM BROM 0.5 MG/2.5ML INH SOL NEB SCH ×6 (02:52→22:28)
[2022-07-18] MEDS: MIDAZOLAM DRIP 50 mg/50mL 50 ML IV SCH (05:44)
[2022-07-18] MEDS: fentaNYL Drip 2500mCg/250mlNS 250 ML IV SCH (05:44)
[2022-07-18] MEDS: METOCLOPRAMIDE HCL 5MG/ml INJ 2ml VIAL IV SCH ×3 (05:44→21:34)
[2022-07-18] MEDS: InsuLIN REG 1unit/0.01ml Soln (100units/ml) SC SCH ×5 (05:57→23:32)
[2022-07-18] MEDS: DOPamine 1600MCG/ML D5W 250 ML IV SCH (06:10)
[2022-07-18] MEDS: MULTIPLE VITAMIN TAB PO SCH (08:06)
[2022-07-18] MEDS: PANTOPRAZOLE 40 MG/10 ML VIAL INJ IV SCH (08:06)
[2022-07-18] MEDS: ENOXAPARIN SOD 100 MG/1 ML SYRINGE SC SCH ×2 (08:06→22:00)
[2022-07-18] MEDS: VANCOMYCIN 1GM/250ML 250 ML IV SCH ×3 (08:06→21:34)
[2022-07-18] MEDS: Pro-Stat SF 30ml Vanilla GT SCH ×2 (08:07→21:33)
[2022-07-18] MEDS: ZINC SULFATE 220mg CAP or TAB PO SCH (08:07)
[2022-07-18] MEDS: SODIUM CHLOR 0.9% PF (SALINE LOCK) 10ML VIAL/SYR IV SCH ×2 (08:08→21:34)
[2022-07-18 10:36] LABS: White Blood Cell 9.6 10^3/uL (4.4-10.8)
[2022-07-18 10:38] LABS: Hematocrit 32.5 % (36.0-46.0); Hemoglobin 10.2 g/dL (12.2-16.2); Mean Corpuscular Hemoglobin 25.3 pg (28.0-32.0); Mean Corpuscular Hgb Conc. 31.5 g/dL (32.0-36.0); Mean Corpuscular Volume 80.2 fL (80.0-100.0); Red Blood Cells 4.05 10^6/uL (4.0-5.20); Red Cell Distribution Width 16.8 % (11.8-14.3)
[2022-07-18] MEDS: NOREPINEPHRINE 8 MG/250ML KIT 250 ML IV SCH (10:39)
[2022-07-18] MEDS: CEFTRIAXONE SODIUM 2 GM in D5W 5% 50 ML IV SCH (10:39)
[2022-07-18 10:42] LABS: Basophils % (manual) 0 (0.0-2.0); Blast Cells 0; Eosinophils % (manual) 0 (0-7); Metamyelocytes % 0; Promyelocytes % 0; Reactive Lymphocytes 0
[2022-07-18 11:12] LABS: Albumin 1.9 g/dL (3.4-5.0); BUN/Creatinine Ratio 19.7; Calcium 8.6 mg/dL (8.5-10.1); Potassium 3.6 mmol/L (3.5-5.1)
[2022-07-18 11:15] LABS: Bilirubin, Total 0.4 mg/dL (0.2-1.0)
[2022-07-18 13:09] LABS: Band Neutrophils % (manual) 3; Lymphocytes % (manual) 11 (10.0-50.0); Monocytes % (manual) 13 (0-12); Myelocytes % 1
[2022-07-18] MEDS ORDERED: FUROSEMIDE 20 MG/2 ML VIAL IV ONE (15:00)
[2022-07-18] MEDS ORDERED: POTASSIUM EFFERVESENT TAB 25 MEQ GT ONE (15:00)
[2022-07-19] VITALS (104 sets, daily range): BP systolic 94–173; BP diastolic 37–117
[2022-07-19] MEDS: ALBUTEROL SULF 2.5 MG/0.5ML(0.5%) NEB SOLN NEB SCH ×6 (02:15→21:54)
[2022-07-19] MEDS: IPRATROPIUM BROM 0.5 MG/2.5ML INH SOL NEB SCH ×6 (02:15→21:54)
[2022-07-19 03:47] LABS: Basophils # (auto) 0.1 10 ^3/uL (0-0.2); Basophils % (auto) 1.1 % (0.0-2.0); Eosinophils # (auto) 0.1 10 ^3/uL (0-0.8); Eosinophils % (auto) 0.8 % (0.0-7.0); Hemoglobin 9.5 g/dL (12.2-16.2); Lymphocytes # (auto) 1.2 10 ^3/uL (0.4-5.4); Mean Corpuscular Hemoglobin 25.6 pg (28.0-32.0); Mean Corpuscular Hgb Conc. 31.8 g/dL (32.0-36.0); Mean Corpuscular Volume 80.8 fL (80.0-100.0); Monocytes # (auto) 2.1 10 ^3/uL (0-1.3); Monocytes % (auto) 17.7 % (0.0-12.0); Neutrophils # (auto) 8.5 10 ^3/uL (1.6-8.6); Neutrophils % (auto) 70.4 % (37.0-80.0); Nucleated Red Blood Cells % 0.1 %; Red Blood Cells 3.72 10^6/uL (4.0-5.20); Red Cell Distribution Width 17.2 % (11.8-14.3); White Blood Cell 12.1 10^3/uL (4.4-10.8)
[2022-07-19 04:05] LABS: BUN/Creatinine Ratio 19.6; Calcium 8.6 mg/dL (8.5-10.1); Potassium 3.1 mmol/L (3.5-5.1)
[2022-07-19] MEDS: fentaNYL Drip 2500mCg/250mlNS 250 ML IV SCH (05:33)
[2022-07-19] MEDS: MIDAZOLAM DRIP 50 mg/50mL 50 ML IV SCH (05:33)
[2022-07-19] MEDS: InsuLIN REG 1unit/0.01ml Soln (100units/ml) SC SCH ×3 (05:34→18:00)
[2022-07-19] MEDS: METOCLOPRAMIDE HCL 5MG/ml INJ 2ml VIAL IV SCH ×3 (05:34→22:32)
[2022-07-19] MEDS: ACCU-CHEK COMFORT CURVE STRIP VI SCH ×3 (05:34→18:35)
[2022-07-19] MEDS: PANTOPRAZOLE 40 MG/10 ML VIAL INJ IV SCH (08:42)
[2022-07-19] MEDS: ENOXAPARIN SOD 100 MG/1 ML SYRINGE SC SCH ×2 (08:42→22:32)
[2022-07-19] MEDS: cefTRIAXone 1GM/50ML D5W 50 ML IV SCH (08:43)
[2022-07-19] MEDS: MULTIPLE VITAMIN TAB PO SCH (08:43)
[2022-07-19] MEDS: SODIUM CHLOR 0.9% PF (SALINE LOCK) 10ML VIAL/SYR IV SCH ×2 (08:43→22:21)
[2022-07-19] MEDS: ZINC SULFATE 220mg CAP or TAB PO SCH (08:43)
[2022-07-19] MEDS: VANCOMYCIN 1GM/250ML 250 ML IV SCH ×2 (09:24→22:25)
[2022-07-19] MEDS: Pro-Stat SF 30ml Vanilla GT SCH ×2 (10:00→22:00)
[2022-07-19] MEDS: NOREPINEPHRINE 8 MG/250ML KIT 250 ML IV SCH (10:29)
[2022-07-19] MEDS ORDERED: POTASSIUM EFFERVESENT TAB 25 MEQ GT ONE (14:30)
[2022-07-19] MEDS ORDERED: FUROSEMIDE 20 MG/2 ML VIAL IV ONE (14:30)
[2022-07-20] VITALS (97 sets, daily range): BP systolic 67–156; BP diastolic 44–119
[2022-07-20] MEDS: ALBUTEROL SULF 2.5 MG/0.5ML(0.5%) NEB SOLN NEB SCH ×6 (01:53→22:37)
[2022-07-20] MEDS: IPRATROPIUM BROM 0.5 MG/2.5ML INH SOL NEB SCH ×6 (01:53→22:37)
[2022-07-20 04:03] LABS: Basophils # (auto) 0.2 10 ^3/uL (0-0.2); Basophils % (auto) 1.3 % (0.0-2.0); Eosinophils # (auto) 0.1 10 ^3/uL (0-0.8); Eosinophils % (auto) 0.9 % (0.0-7.0); Hematocrit 30.5 % (36.0-46.0); Hemoglobin 9.5 g/dL (12.2-16.2); Lymphocytes # (auto) 1.3 10 ^3/uL (0.4-5.4); Lymphocytes % (auto) 10.7 % (10.0-50.0); Mean Corpuscular Hemoglobin 25.1 pg (28.0-32.0); Mean Corpuscular Hgb Conc. 31.2 g/dL (32.0-36.0); Mean Corpuscular Volume 80.6 fL (80.0-100.0); Monocytes # (auto) 2.3 10 ^3/uL (0-1.3); Neutrophils # (auto) 8.3 10 ^3/uL (1.6-8.6); Neutrophils % (auto) 68.3 % (37.0-80.0); Red Blood Cells 3.79 10^6/uL (4.0-5.20); Red Cell Distribution Width 16.8 % (11.8-14.3); White Blood Cell 12.1 10^3/uL (4.4-10.8)
[2022-07-20 04:04] LABS: Monocytes % (auto) 18.8 % (0.0-12.0)
[2022-07-20 04:20] LABS: Calcium 8.2 mg/dL (8.5-10.1); Potassium 3.3 mmol/L (3.5-5.1)
[2022-07-20 04:24] LABS: BUN/Creatinine Ratio 16.7; Bilirubin, Total 0.4 mg/dL (0.2-1.0)
[2022-07-20] MEDS: fentaNYL Drip 2500mCg/250mlNS 250 ML IV SCH (05:45)
[2022-07-20] MEDS: MIDAZOLAM DRIP 50 mg/50mL 50 ML IV SCH (05:45)
[2022-07-20] MEDS: InsuLIN REG 1unit/0.01ml Soln (100units/ml) SC SCH ×4 (06:00→18:00)
[2022-07-20] MEDS: ACCU-CHEK COMFORT CURVE STRIP VI SCH ×4 (06:20→18:00)
[2022-07-20] MEDS: METOCLOPRAMIDE HCL 5MG/ml INJ 2ml VIAL IV SCH (06:35)
[2022-07-20] MEDS: cefTRIAXone 1GM/50ML D5W 50 ML IV SCH (08:45)
[2022-07-20] MEDS: VANCOMYCIN 1GM/250ML 250 ML IV SCH ×2 (09:55→21:40)
[2022-07-20] MEDS: PANTOPRAZOLE 40 MG/10 ML VIAL INJ IV SCH (09:56)
[2022-07-20] MEDS: SODIUM CHLOR 0.9% PF (SALINE LOCK) 10ML VIAL/SYR IV SCH ×2 (09:56→21:35)
[2022-07-20] MEDS: FUROSEMIDE 20 MG/2 ML VIAL IV SCH (09:56)
[2022-07-20] MEDS: ZINC SULFATE 220mg CAP or TAB PO SCH (09:58)
[2022-07-20] MEDS: POTASSIUM EFFERVESENT TAB 25 MEQ PO SCH (09:58)
[2022-07-20] MEDS: MULTIPLE VITAMIN TAB PO SCH (09:58)
[2022-07-20] MEDS: ENOXAPARIN SOD 100 MG/1 ML SYRINGE SC SCH ×2 (09:58→21:45)
[2022-07-20] MEDS: NOREPINEPHRINE 8 MG/250ML KIT 250 ML IV SCH (09:58)
[2022-07-20] MEDS: Pro-Stat SF 30ml Vanilla GT SCH ×2 (09:59→21:36)
[2022-07-20] MEDS ORDERED: FUROSEMIDE 40 MG/4 ML VIAL IV ONE (13:00)
[2022-07-20] MEDS: POTASSIUM CHL 20MEQ/100ML 100 ML IV SCH ×2 (14:00→16:35)
[2022-07-20] MEDS ORDERED: EPINEPHrine HCL 0.5 ML NEB ONE (15:13)
[2022-07-20] MEDS ORDERED: EPINEPHrine HCL 0.5 ML NEB NEB ONE (15:30)
[2022-07-21] VITALS (60 sets, daily range): BP systolic 113–146; BP diastolic 41–88
[2022-07-21] MEDS: ACCU-CHEK COMFORT CURVE STRIP VI SCH ×4 (00:11→18:00)
[2022-07-21] MEDS: ALBUTEROL SULF 2.5 MG/0.5ML(0.5%) NEB SOLN NEB SCH ×6 (02:21→22:13)
[2022-07-21] MEDS: IPRATROPIUM BROM 0.5 MG/2.5ML INH SOL NEB SCH ×6 (02:21→22:13)
[2022-07-21 03:40] LABS: Basophils # (auto) 0.1 10 ^3/uL (0-0.2); Eosinophils # (auto) 0.1 10 ^3/uL (0-0.8); Hemoglobin 9.8 g/dL (12.2-16.2); Neutrophils # (auto) 6.9 10 ^3/uL (1.6-8.6); Red Cell Distribution Width 17.1 % (11.8-14.3)
[2022-07-21 03:42] LABS: Basophils % (auto) 0.9 % (0.0-2.0); Eosinophils % (auto) 1.3 % (0.0-7.0); Hematocrit 31.1 % (36.0-46.0); Lymphocytes # (auto) 1.4 10 ^3/uL (0.4-5.4); Lymphocytes % (auto) 13.4 % (10.0-50.0); Mean Corpuscular Hemoglobin 25.5 pg (28.0-32.0); Mean Corpuscular Hgb Conc. 31.5 g/dL (32.0-36.0); Mean Corpuscular Volume 81.2 fL (80.0-100.0); Neutrophils % (auto) 65.7 % (37.0-80.0); Nucleated Red Blood Cells % 0.1 %; Red Blood Cells 3.83 10^6/uL (4.0-5.20); White Blood Cell 10.5 10^3/uL (4.4-10.8)
[2022-07-21 03:45] LABS: Monocytes % (auto) 18.7 % (0.0-12.0)
[2022-07-21 03:57] LABS: BUN/Creatinine Ratio 15.4; Calcium 8.7 mg/dL (8.5-10.1); Potassium 3.8 mmol/L (3.5-5.1)
[2022-07-21] MEDS: fentaNYL Drip 2500mCg/250mlNS 250 ML IV SCH (05:22)
[2022-07-21] MEDS: MIDAZOLAM DRIP 50 mg/50mL 50 ML IV SCH (05:22)
[2022-07-21] MEDS: InsuLIN REG 1unit/0.01ml Soln (100units/ml) SC SCH ×4 (06:00→18:00)
[2022-07-21] MEDS: cefTRIAXone 1GM/50ML D5W 50 ML IV SCH (09:13)
[2022-07-21] MEDS: ENOXAPARIN SOD 100 MG/1 ML SYRINGE SC SCH ×2 (09:13→21:51)
[2022-07-21] MEDS: Pro-Stat SF 30ml Vanilla GT SCH ×2 (10:00→21:32)
[2022-07-21] MEDS: ZINC SULFATE 220mg CAP or TAB PO SCH (10:00)
[2022-07-21] MEDS: POTASSIUM EFFERVESENT TAB 25 MEQ PO SCH (10:00)
[2022-07-21] MEDS: MULTIPLE VITAMIN TAB PO SCH (10:00)
[2022-07-21] MEDS: PANTOPRAZOLE 40 MG/10 ML VIAL INJ IV SCH (10:02)
[2022-07-21] MEDS: VANCOMYCIN 1GM/250ML 250 ML IV SCH ×2 (10:03→21:51)
[2022-07-21] MEDS: FUROSEMIDE 20 MG/2 ML VIAL IV SCH (10:03)
[2022-07-21] MEDS: SODIUM CHLOR 0.9% PF (SALINE LOCK) 10ML VIAL/SYR IV SCH ×2 (10:08→21:32)
[2022-07-22] VITALS (42 sets, daily range): BP systolic 115–168; BP diastolic 59–79
[2022-07-22] MEDS: ACCU-CHEK COMFORT CURVE STRIP VI SCH ×4 (00:15→18:00)
[2022-07-22] MEDS: IPRATROPIUM BROM 0.5 MG/2.5ML INH SOL NEB SCH ×6 (02:19→23:09)
[2022-07-22] MEDS: ALBUTEROL SULF 2.5 MG/0.5ML(0.5%) NEB SOLN NEB SCH ×6 (02:19→23:09)
[2022-07-22 04:27] LABS: Basophils # (auto) 0.2 10 ^3/uL (0-0.2); Basophils % (auto) 2.3 % (0.0-2.0); Eosinophils # (auto) 0.2 10 ^3/uL (0-0.8); Hematocrit 33.3 % (36.0-46.0); Hemoglobin 10.6 g/dL (12.2-16.2); Lymphocytes # (auto) 1.4 10 ^3/uL (0.4-5.4); Lymphocytes % (auto) 14.7 % (10.0-50.0); Mean Corpuscular Hemoglobin 25.9 pg (28.0-32.0); Mean Corpuscular Hgb Conc. 31.7 g/dL (32.0-36.0); Mean Corpuscular Volume 81.6 fL (80.0-100.0); Monocytes # (auto) 1.7 10 ^3/uL (0-1.3); Neutrophils # (auto) 5.8 10 ^3/uL (1.6-8.6); Neutrophils % (auto) 62.7 % (37.0-80.0); Nucleated Red Blood Cells % 0.1 %; Red Blood Cells 4.08 10^6/uL (4.0-5.20); Red Cell Distribution Width 17.6 % (11.8-14.3); White Blood Cell 9.2 10^3/uL (4.4-10.8)
[2022-07-22 04:28] LABS: Monocytes % (auto) 18.3 % (0.0-12.0)
[2022-07-22 04:35] LABS: Calcium 8.6 mg/dL (8.5-10.1); Potassium 3.8 mmol/L (3.5-5.1)
[2022-07-22 04:37] LABS: BUN/Creatinine Ratio 17.8
[2022-07-22] MEDS: InsuLIN REG 1unit/0.01ml Soln (100units/ml) SC SCH ×4 (06:00→18:00)
[2022-07-22] MEDS: Pro-Stat SF 30ml Vanilla GT SCH ×2 (07:59→21:36)
[2022-07-22] MEDS: cefTRIAXone 1GM/50ML D5W 50 ML IV SCH (08:00)
[2022-07-22] MEDS: SODIUM CHLOR 0.9% PF (SALINE LOCK) 10ML VIAL/SYR IV SCH ×2 (08:47→21:36)
[2022-07-22] MEDS: ENOXAPARIN SOD 100 MG/1 ML SYRINGE SC SCH ×2 (08:47→22:04)
[2022-07-22] MEDS: PANTOPRAZOLE 40 MG/10 ML VIAL INJ IV SCH (09:52)
[2022-07-22] MEDS: FUROSEMIDE 20 MG/2 ML VIAL IV SCH (09:52)
[2022-07-22] MEDS: VANCOMYCIN 1GM/250ML 250 ML IV SCH ×2 (09:52→22:04)
[2022-07-22] MEDS ORDERED: Glucerna 1.2 Cal 1Liter BOTTLE GT SCH (15:15)
[2022-07-23] VITALS (22 sets, daily range): BP systolic 119–152; BP diastolic 57–71
[2022-07-23] MEDS: ACCU-CHEK COMFORT CURVE STRIP VI SCH ×4 (00:29→17:19)
[2022-07-23 04:15] LABS: Hematocrit 33.2 % (36.0-46.0); Hemoglobin 10.7 g/dL (12.2-16.2)
[2022-07-23 04:18] LABS: Mean Corpuscular Hemoglobin 26.3 pg (28.0-32.0); Mean Corpuscular Hgb Conc. 32.2 g/dL (32.0-36.0); Mean Corpuscular Volume 81.7 fL (80.0-100.0); Red Blood Cells 4.06 10^6/uL (4.0-5.20); White Blood Cell 9.4 10^3/uL (4.4-10.8)
[2022-07-23 04:37] LABS: Basophils % (manual) 0 (0.0-2.0); Blast Cells 0; Eosinophils % (manual) 0 (0-7); Metamyelocytes % 0; Myelocytes % 0; Promyelocytes % 0; Reactive Lymphocytes 0
[2022-07-23 05:12] LABS: BUN/Creatinine Ratio 15.7; Calcium 8.5 mg/dL (8.5-10.1); Potassium 3.3 mmol/L (3.5-5.1)
[2022-07-23] MEDS: InsuLIN REG 1unit/0.01ml Soln (100units/ml) SC SCH ×4 (05:18→17:19)
[2022-07-23 05:39] LABS: Band Neutrophils % (manual) 6; Lymphocytes % (manual) 24 (10.0-50.0); Monocytes % (manual) 4 (0-12)
[2022-07-23] MEDS: ALBUTEROL SULF 2.5 MG/0.5ML(0.5%) NEB SOLN NEB SCH ×5 (08:35→22:16)
[2022-07-23] MEDS: IPRATROPIUM BROM 0.5 MG/2.5ML INH SOL NEB SCH ×4 (08:36→22:16)
[2022-07-23] MEDS: cefTRIAXone 1GM/50ML D5W 50 ML IV SCH (08:42)
[2022-07-23] MEDS: ENOXAPARIN SOD 100 MG/1 ML SYRINGE SC SCH (08:45)
[2022-07-23] MEDS: Pro-Stat SF 30ml Vanilla GT SCH ×2 (10:00→22:00)
[2022-07-23] MEDS: PANTOPRAZOLE 40 MG/10 ML VIAL INJ IV SCH (11:14)
[2022-07-23] MEDS: SODIUM CHLOR 0.9% PF (SALINE LOCK) 10ML VIAL/SYR IV SCH (11:14)
[2022-07-23] MEDS: FUROSEMIDE 20 MG/2 ML VIAL IV SCH (11:14)
[2022-07-23] MEDS: VANCOMYCIN 1GM/250ML 250 ML IV SCH ×2 (11:15→12:02)
[2022-07-23] MEDS: AMIODARONE HCL 200 MG TAB PO SCH (11:15)
[2022-07-24] MEDS: InsuLIN REG 1unit/0.01ml Soln (100units/ml) SC SCH ×4 (01:00→17:59)
[2022-07-24] MEDS: SODIUM CHLOR 0.9% PF (SALINE LOCK) 10ML VIAL/SYR IV SCH ×3 (01:22→22:16)
[2022-07-24] MEDS: ENOXAPARIN SOD 100 MG/1 ML SYRINGE SC SCH ×3 (01:22→22:15)
[2022-07-24] MEDS: ACCU-CHEK COMFORT CURVE STRIP VI SCH ×4 (01:23→17:59)
[2022-07-24] MEDS ORDERED: VANCOMYCIN 1GM/250ML 250 ML IV SCH (02:00)
[2022-07-24] MEDS: IPRATROPIUM BROM 0.5 MG/2.5ML INH SOL NEB SCH ×6 (02:26→22:16)
[2022-07-24] MEDS: ALBUTEROL SULF 2.5 MG/0.5ML(0.5%) NEB SOLN NEB SCH ×5 (02:26→22:16)
[2022-07-24 05:00] VITALS: BP 135/55
[2022-07-24 08:00] VITALS: BP 124/63
[2022-07-24 08:44] VITALS: BP 134/60
[2022-07-24] MEDS: Pro-Stat SF 30ml Vanilla GT SCH ×2 (08:48→22:00)
[2022-07-24] MEDS: cefTRIAXone 1GM/50ML D5W 50 ML IV SCH (09:45)
[2022-07-24] MEDS: AMIODARONE HCL 200 MG TAB PO SCH (09:46)
[2022-07-24] MEDS: PANTOPRAZOLE 40 MG/10 ML VIAL INJ IV SCH (09:46)
[2022-07-24] MEDS: FUROSEMIDE 20 MG/2 ML VIAL IV SCH (09:46)
[2022-07-24 11:57] VITALS: BP 137/59
[2022-07-24 12:13] LABS: Hematocrit 34.8 % (36.0-46.0)
[2022-07-24 12:15] LABS: Hemoglobin 11.1 g/dL (12.2-16.2); Mean Corpuscular Hemoglobin 26.7 pg (28.0-32.0); Mean Corpuscular Volume 83.6 fL (80.0-100.0); Red Blood Cells 4.16 10^6/uL (4.0-5.20); Red Cell Distribution Width 19.3 % (11.8-14.3); White Blood Cell 8.5 10^3/uL (4.4-10.8)
[2022-07-24 12:20] LABS: Basophils % (manual) 0 (0.0-2.0); Blast Cells 0; Metamyelocytes % 0; Promyelocytes % 0; Reactive Lymphocytes 0
[2022-07-24 12:21] LABS: BUN/Creatinine Ratio 16.7; Potassium 3.6 mmol/L (3.5-5.1)
[2022-07-24 12:48] LABS: Band Neutrophils % (manual) 1; Eosinophils % (manual) 2 (0-7); Lymphocytes % (manual) 17 (10.0-50.0); Monocytes % (manual) 14 (0-12); Myelocytes % 2
[2022-07-24 16:49] VITALS: BP 135/64
[2022-07-24] MEDS: VANCOMYCIN 1GM/250ML 250 ML IV SCH (17:45)
[2022-07-24] MEDS ORDERED: ALBUTEROL MEDNEB 2.5 mg/3ml NEB ONE (18:59)
[2022-07-24 20:00] VITALS: BP 114/46
[2022-07-25] MEDS: ACCU-CHEK COMFORT CURVE STRIP VI SCH ×5 (02:29→23:56)
[2022-07-25] MEDS: InsuLIN REG 1unit/0.01ml Soln (100units/ml) SC SCH ×5 (02:30→23:56)
[2022-07-25] MEDS: ALBUTEROL SULF 2.5 MG/0.5ML(0.5%) NEB SOLN NEB SCH ×6 (03:06→22:27)
[2022-07-25] MEDS: IPRATROPIUM BROM 0.5 MG/2.5ML INH SOL NEB SCH ×6 (03:06→22:27)
[2022-07-25] MEDS ORDERED: ALBUTEROL MEDNEB 2.5 mg/3ml NEB ONE ×5 (06:14→21:34)
[2022-07-25] MEDS: VANCOMYCIN 1GM/250ML 250 ML IV SCH ×2 (09:45→23:43)
[2022-07-25] MEDS: Pro-Stat SF 30ml Vanilla GT SCH ×2 (09:46→22:35)
[2022-07-25] MEDS: cefTRIAXone 1GM/50ML D5W 50 ML IV SCH (09:46)
[2022-07-25] MEDS: PANTOPRAZOLE 40 MG/10 ML VIAL INJ IV SCH (09:47)
[2022-07-25] MEDS: ENOXAPARIN SOD 100 MG/1 ML SYRINGE SC SCH ×2 (09:47→22:00)
[2022-07-25] MEDS: SODIUM CHLOR 0.9% PF (SALINE LOCK) 10ML VIAL/SYR IV SCH ×2 (09:47→22:00)
[2022-07-25] MEDS: FUROSEMIDE 20 MG/2 ML VIAL IV SCH (09:47)
[2022-07-25] MEDS: AMIODARONE HCL 200 MG TAB PO SCH (09:50)
[2022-07-26] MEDS ORDERED: ALBUTEROL MEDNEB 2.5 mg/3ml NEB ONE ×2 (01:24→06:03)
[2022-07-26] MEDS: ALBUTEROL SULF 2.5 MG/0.5ML(0.5%) NEB SOLN NEB SCH ×6 (02:26→23:11)
[2022-07-26] MEDS: IPRATROPIUM BROM 0.5 MG/2.5ML INH SOL NEB SCH ×6 (02:26→23:11)
[2022-07-26 05:07] VITALS: BP 130/46
[2022-07-26] MEDS: ACCU-CHEK COMFORT CURVE STRIP VI SCH ×3 (05:52→17:23)
[2022-07-26] MEDS: InsuLIN REG 1unit/0.01ml Soln (100units/ml) SC SCH ×3 (05:52→18:00)
[2022-07-26 08:43] VITALS: BP 130/54
[2022-07-26] MEDS: Pro-Stat SF 30ml Vanilla GT SCH ×2 (10:11→21:32)
[2022-07-26] MEDS: cefTRIAXone 1GM/50ML D5W 50 ML IV SCH (10:11)
[2022-07-26] MEDS: FUROSEMIDE 20 MG/2 ML VIAL IV SCH (10:14)
[2022-07-26] MEDS: PANTOPRAZOLE 40 MG/10 ML VIAL INJ IV SCH (10:14)
[2022-07-26] MEDS: SODIUM CHLOR 0.9% PF (SALINE LOCK) 10ML VIAL/SYR IV SCH ×2 (10:15→21:32)
[2022-07-26] MEDS: AMIODARONE HCL 200 MG TAB PO SCH (10:15)
[2022-07-26] MEDS: ENOXAPARIN SOD 100 MG/1 ML SYRINGE SC SCH ×2 (10:15→21:31)
[2022-07-26] MEDS: VANCOMYCIN 1GM/250ML 250 ML IV SCH ×2 (11:36→23:55)
[2022-07-26 12:50] VITALS: BP 136/64
[2022-07-26 17:06] VITALS: BP 124/48
[2022-07-26 20:00] VITALS: BP 113/59
[2022-07-26 22:00] VITALS: BP 138/43
[2022-07-27] MEDS: ACCU-CHEK COMFORT CURVE STRIP VI SCH ×5 (00:20→22:54)
[2022-07-27] MEDS: IPRATROPIUM BROM 0.5 MG/2.5ML INH SOL NEB SCH ×6 (02:00→23:25)
[2022-07-27] MEDS: ALBUTEROL SULF 2.5 MG/0.5ML(0.5%) NEB SOLN NEB SCH ×6 (02:00→23:25)
[2022-07-27 02:41] VITALS: BP 138/43
[2022-07-27 05:00] VITALS: BP 135/53
[2022-07-27] MEDS: InsuLIN REG 1unit/0.01ml Soln (100units/ml) SC SCH ×5 (05:38→23:02)
[2022-07-27 08:10] LABS: Basophils # (auto) 0.2 10 ^3/uL (0-0.2); Eosinophils # (auto) 0.9 10 ^3/uL (0-0.8); Eosinophils % (auto) 10.8 % (0.0-7.0); Hematocrit 37.4 % (36.0-46.0); Hemoglobin 12.1 g/dL (12.2-16.2); Lymphocytes # (auto) 1.7 10 ^3/uL (0.4-5.4); Lymphocytes % (auto) 21.8 % (10.0-50.0); Mean Corpuscular Hemoglobin 26.5 pg (28.0-32.0); Mean Corpuscular Hgb Conc. 32.3 g/dL (32.0-36.0); Mean Corpuscular Volume 81.8 fL (80.0-100.0); Monocytes # (auto) 1.4 10 ^3/uL (0-1.3); Neutrophils # (auto) 3.7 10 ^3/uL (1.6-8.6); Neutrophils % (auto) 46.4 % (37.0-80.0); Nucleated Red Blood Cells % 0.3 %; Red Blood Cells 4.57 10^6/uL (4.0-5.20); Red Cell Distribution Width 19.4 % (11.8-14.3)
[2022-07-27 08:15] LABS: Potassium 3.4 mmol/L (3.5-5.1)
[2022-07-27 08:32] LABS: BUN/Creatinine Ratio 24.1; Calcium 9.2 mg/dL (8.5-10.1)
[2022-07-27 09:00] VITALS: BP 146/68
[2022-07-27] MEDS: Pro-Stat SF 30ml Vanilla GT SCH ×2 (10:00→22:53)
[2022-07-27] MEDS: cefTRIAXone 1GM/50ML D5W 50 ML IV SCH (10:41)
[2022-07-27] MEDS: FUROSEMIDE 20 MG/2 ML VIAL IV SCH (10:44)
[2022-07-27] MEDS: PANTOPRAZOLE 40 MG/10 ML VIAL INJ IV SCH (10:44)
[2022-07-27] MEDS: SODIUM CHLOR 0.9% PF (SALINE LOCK) 10ML VIAL/SYR IV SCH ×2 (10:44→22:53)
[2022-07-27] MEDS: AMIODARONE HCL 200 MG TAB PO SCH (10:45)
[2022-07-27] MEDS: ENOXAPARIN SOD 100 MG/1 ML SYRINGE SC SCH (10:45)
[2022-07-27] MEDS: VANCOMYCIN 1GM/250ML 250 ML IV SCH (10:46)
[2022-07-27] MEDS ORDERED: POTASSIUM CHL 20 Meq TABLET PO ONE (12:00)
[2022-07-27 13:00] VITALS: BP 122/50
[2022-07-27 17:00] VITALS: BP 140/72
[2022-07-27 22:00] VITALS: BP 145/77
[2022-07-27] MEDS: DABIGATRAN 75 MG CAP PO SCH (22:53)
[2022-07-28] VITALS (7 sets, daily range): BP systolic 120–138; BP diastolic 45–73
[2022-07-28] MEDS: IPRATROPIUM BROM 0.5 MG/2.5ML INH SOL NEB SCH ×6 (02:20→22:20)
[2022-07-28] MEDS: ALBUTEROL SULF 2.5 MG/0.5ML(0.5%) NEB SOLN NEB SCH ×6 (02:20→22:20)
[2022-07-28] MEDS: InsuLIN REG 1unit/0.01ml Soln (100units/ml) SC SCH ×4 (05:39→23:09)
[2022-07-28] MEDS: ACCU-CHEK COMFORT CURVE STRIP VI SCH ×4 (05:39→23:09)
[2022-07-28] MEDS: DABIGATRAN 75 MG CAP PO SCH ×2 (09:34→22:30)
[2022-07-28] MEDS: cefTRIAXone 1GM/50ML D5W 50 ML IV SCH (09:34)
[2022-07-28] MEDS: PANTOPRAZOLE 40 MG/10 ML VIAL INJ IV SCH (09:35)
[2022-07-28] MEDS: AMIODARONE HCL 200 MG TAB PO SCH (09:35)
[2022-07-28] MEDS: FUROSEMIDE 20 MG/2 ML VIAL IV SCH (09:40)
[2022-07-28] MEDS: SODIUM CHLOR 0.9% PF (SALINE LOCK) 10ML VIAL/SYR IV SCH ×2 (09:41→22:29)
[2022-07-28] MEDS: Pro-Stat SF 30ml Vanilla GT SCH ×2 (10:01→22:29)
[2022-07-29] MEDS: ALBUTEROL SULF 2.5 MG/0.5ML(0.5%) NEB SOLN NEB SCH ×6 (02:03→21:46)
[2022-07-29] MEDS: IPRATROPIUM BROM 0.5 MG/2.5ML INH SOL NEB SCH ×6 (02:03→21:46)
[2022-07-29 05:02] VITALS: BP 137/53
[2022-07-29] MEDS: ACCU-CHEK COMFORT CURVE STRIP VI SCH ×4 (05:13→23:37)
[2022-07-29] MEDS: InsuLIN REG 1unit/0.01ml Soln (100units/ml) SC SCH ×4 (05:13→22:49)
[2022-07-29 08:00] VITALS: BP 120/48
[2022-07-29 09:00] VITALS: BP 133/35
[2022-07-29] MEDS: cefTRIAXone 1GM/50ML D5W 50 ML IV SCH (09:53)
[2022-07-29] MEDS: PANTOPRAZOLE 40 MG/10 ML VIAL INJ IV SCH (09:53)
[2022-07-29] MEDS: SODIUM CHLOR 0.9% PF (SALINE LOCK) 10ML VIAL/SYR IV SCH ×2 (09:54→22:00)
[2022-07-29] MEDS: DABIGATRAN 75 MG CAP PO SCH ×2 (09:55→22:43)
[2022-07-29] MEDS: AMIODARONE HCL 200 MG TAB PO SCH (09:55)
[2022-07-29] MEDS: FUROSEMIDE 20 MG TAB PO SCH (09:56)
[2022-07-29] MEDS: Pro-Stat SF 30ml Vanilla GT SCH ×2 (09:56→22:00)
[2022-07-29 13:07] VITALS: BP 128/63
[2022-07-29 17:00] VITALS: BP 136/68
[2022-07-29 22:00] VITALS: BP 138/52
[2022-07-30] MEDS: IPRATROPIUM BROM 0.5 MG/2.5ML INH SOL NEB SCH ×4 (01:53→13:43)
[2022-07-30] MEDS: ALBUTEROL SULF 2.5 MG/0.5ML(0.5%) NEB SOLN NEB SCH ×4 (01:53→13:43)
[2022-07-30 02:30] VITALS: BP 138/52
[2022-07-30 05:00] VITALS: BP 135/56
[2022-07-30] MEDS: InsuLIN REG 1unit/0.01ml Soln (100units/ml) SC SCH ×2 (06:00→12:00)
[2022-07-30] MEDS: ACCU-CHEK COMFORT CURVE STRIP VI SCH ×2 (06:08→12:05)
[2022-07-30 07:14] LABS: Calcium 8.9 mg/dL (8.5-10.1); Potassium 3.5 mmol/L (3.5-5.1)
[2022-07-30 07:16] LABS: BUN/Creatinine Ratio 27.1
[2022-07-30 09:00] VITALS: BP 115/65
[2022-07-30] MEDS: cefTRIAXone 1GM/50ML D5W 50 ML IV SCH (09:00)
[2022-07-30] MEDS: DABIGATRAN 75 MG CAP PO SCH (09:01)
[2022-07-30] MEDS: PANTOPRAZOLE 40 MG/10 ML VIAL INJ IV SCH (09:01)
[2022-07-30] MEDS: Pro-Stat SF 30ml Vanilla GT SCH (09:01)
[2022-07-30] MEDS: FUROSEMIDE 20 MG TAB PO SCH (09:01)
[2022-07-30] MEDS: SODIUM CHLOR 0.9% PF (SALINE LOCK) 10ML VIAL/SYR IV SCH (09:02)
[2022-07-30] MEDS: AMIODARONE HCL 200 MG TAB PO SCH (09:02)
[2022-07-30 13:07] VITALS: BP 115/65
[2022-07-30 13:19] VITALS: BP 136/62
== END 2022-07-30 17:00 | DRG 870 ==
LOC: ER 14:30 → EDBD 14:30 → TELE 21:06 → ICU WEST 07-08 15:13 → DOU IN ICU 07-23 05:50 → TELE-WESTW 07-23 12:34
PROVIDERS: ADMIT Nurse Practitioner; ATTEND Student in an Organized Health Care Education/Training Program
PROC: XW033E5 Introduction of Remdesivir Anti-infective into Peripheral Vein, Percutaneous Approach, New Technology Group 5 (ICD-10-PCS; 2022-07-07)
PROC: 5A1955Z Respiratory Ventilation, Greater than 96 Consecutive Hours (ICD-10-PCS; principal; 2022-07-08)
PROC: 0BH17EZ Insertion of Endotracheal Airway into Trachea, Via Natural or Artificial Opening (ICD-10-PCS; 2022-07-08)
PROC: 05H933Z Insertion of Infusion Device into Right Brachial Vein, Percutaneous Approach (ICD-10-PCS; 2022-07-08)
PROC: B54MZZA Ultrasonography of Right Upper Extremity Veins, Guidance (ICD-10-PCS; 2022-07-08)
PROC: 05HA33Z Insertion of Infusion Device into Left Brachial Vein, Percutaneous Approach (ICD-10-PCS; 2022-07-08)
PROC: B54NZZA Ultrasonography of Left Upper Extremity Veins, Guidance (ICD-10-PCS; 2022-07-08)
PROC: 5A09357 Assistance with Respiratory Ventilation, Less than 24 Consecutive Hours, Continuous Positive Airway Pressure (ICD-10-PCS; 2022-07-08)
PROC: 02HV33Z Insertion of Infusion Device into Superior Vena Cava, Percutaneous Approach (ICD-10-PCS; 2022-07-11)
PROC: B548ZZA Ultrasonography of Superior Vena Cava, Guidance (ICD-10-PCS; 2022-07-11)
DX: A40.9 Streptococcal sepsis, unspecified (principal); J13 Pneumonia due to Streptococcus pneumoniae; J96.01 Acute respiratory failure with hypoxia; R65.21 Severe sepsis with septic shock; J12.82 Pneumonia due to coronavirus disease 2019; U07.1 COVID-19; G93.41 Metabolic encephalopathy; I21.A1 Myocardial infarction type 2; I50.33 Acute on chronic diastolic (congestive) heart failure; E44.0 Moderate protein-calorie malnutrition; D68.69 Other thrombophilia; J98.11 Atelectasis; N39.0 Urinary tract infection, site not specified; I11.0 Hypertensive heart disease with heart failure; E11.65 Type 2 diabetes mellitus with hyperglycemia; E78.5 Hyperlipidemia, unspecified; I48.91 Unspecified atrial fibrillation; E66.9 Obesity, unspecified; L98.429 Non-pressure chronic ulcer of back with unspecified severity; R79.89 Other specified abnormal findings of blood chemistry; L89.152 Pressure ulcer of sacral region, stage 2; Z68.39 Body mass index [BMI] 39.0-39.9, adult; Z88.0 Allergy status to penicillin; Z79.01 Long term (current) use of anticoagulants; Z86.73 Personal history of transient ischemic attack (TIA), and cerebral infarction without residual deficits; Z23 Encounter for immunization
CPT/HCPCS: 31500; 36415; 36569; 36600; 71045; 80048; 80053; 80076; 80162; 80202; 81001; 82565; 82728; 82805; 82962; 83605; 83735; 83880; 84484; 85007; 85025; 85027; 85379; 85610; 85730; 87040; 87070; 87077; 87081; 87186; 87205; 87426; 87804; 92610; 93005; 93306; 94002; 94003; 94640; 94644; 94660; 96374; 96375; 97110; 97163; 99291; C9113; G0378; J0461; J0696; J1100; J1815; J2250; J3480; J7060

== ENCOUNTER 2024-11-05 19:34 | Inpatient (IN) | payer OTHER ==
[~2024-11-05] VITALS: Ht 177.8 cm; Wt 118.0 kg
[~2024-11-05 19:34] MED LIST: AMIO200T33 PO; ATOR-47 PO; AZAT50TA43 PO; DABI150C5 PO; DIGO0.12 PO; DILT60TA PO; METF-370 PO; POTA-36 PO; [UNRECOGNIZED DRUG - CODE] PO
[2024-11-05 20:00] LABS: Basophils # (auto) 0.1 10 ^3/uL (0-0.2); Basophils % (auto) 1.4 % (0.0-2.0); Eosinophils # (auto) 0.4 10 ^3/uL (0-0.8); Eosinophils % (auto) 5.5 % (0.0-7.0); Hemoglobin 14.3 g/dL (12.2-16.2); Lymphocytes # (auto) 1.1 10 ^3/uL (0.4-5.4); Lymphocytes % (auto) 13.4 % (10.0-50.0); Mean Corpuscular Hemoglobin 30.4 pg (28.0-32.0); Mean Corpuscular Hgb Conc. 33.3 g/dL (32.0-36.0); Mean Corpuscular Volume 91.3 fL (80.0-100.0); Monocytes # (auto) 0.9 10 ^3/uL (0-1.3); Monocytes % (auto) 11.9 % (0.0-12.0); Neutrophils # (auto) 5.3 10 ^3/uL (1.6-8.6); Neutrophils % (auto) 67.8 % (37.0-80.0); Nucleated Red Blood Cells % 0.1 %; Platelet Count (auto) 271 10^3/uL (140-450); Red Blood Cells 4.71 10^6/uL (4.0-5.20); Red Cell Distribution Width 14.9 % (11.8-14.3); White Blood Cell 7.8 10^3/uL (4.4-10.8)
--- NOTE | 2024-11-05 20:00 | ED.PDOC ---
History of Present Illness HPI Comments 64 y/o morbidly obese F, with a history of multiple CVA w/right-sided deficits, AFIB, HTN, and vasculitis, is BIBA for c/o chest pain and dizzy spells, today. Patient endorses on sudden and unprovoked onset of symptoms, this evening. She reports no recent stressors, strenuous activities, or sick contact. Patient states on pain being, initially, a 6/10 in severity and improving to a 1/10 at time of arrival to ED. She reports isolated episode of chest pain that resolved on its own 2x weeks ago. Patient denies any shortness of breath, palpitations, nausea, vomiting, fever, or chills at this time. Per [facility] medical record, patient has additional history of: acute respiratory failure, streptococcus PNA with septic shock, Covid19 PNA with sepsis, and NSTEMI. Chief Complaint: Chest Pain Time Seen by MD: 19:40 Primary Care Provider: FAHEEM Reviewed Notes: Nurses Notes, Incident Handler Notes, Medications, Allergies Allergies: Coded Allergies: Penicillins (Verified Allergy, Unknown, 04/19/17) Home Meds Reported Medications Diltiazem Hcl (Diltiazem Hcl) 60 Mg Tab, 60 MG PO Q8HR for 30 Days, MG 07/08/22 Amiodarone Hcl (Amiodarone Hcl) 200 Mg Tab, 200 MG PO DAILY for 30 Days 07/08/22 Potassium Chloride (POTASSIUM CHLORIDE CR) 10 Meq Tb, 10 MEQ PO DAILY, TAB 07/08/22 Azathioprine (Azathioprine) 50 Mg Tab, 50 MG PO DAILY 07/08/22 Metformin Hydrochloride (Metformin Hcl) 500 Mg Tab, 500 MG PO IBID for 30 Days, MG 07/08/22 Digoxin (Digoxin) 125 Mcg Tab, 125 MCG PO DAILY, TAB 07/08/22 Atorvastatin Calcium (ATORVASTATIN CALCIUM) 80 Mg Tab, 80 MG PO DAILY, TAB 07/08/22 Dabigatran Etexilate Mesylate (Pradaxa) 150 Mg Cap, 150 MG PO BID, CAP 07/08/22 Ergocalciferol (Drisdol) 50,000 Unit Cap, 64423 UNIT PO, CAP 07/08/22 Information Source: Patient, Emergency Med Personnel Mode of Arrival: EMS Severity: Moderate Timing: Hours Duration: Since onset Prehospital treatment: 12 Lead EKG, Accucheck, Fur Repairer Past Medical History PAST MEDICAL HISTORY: AFIB, CVA (multiple with right-sided deficits ), DM, High Lipids, HTN, MA (NSTEMI type II ) Past Medical History (Other): acute respiratory failure, streptococcus PNA with septic shock, Covid19 PNA with sepsis, morbid obesity Surgical History: Hernia Repair STRATEGIC PROCUREMENT MANAGER History: No Pertinent STRATEGIC PROCUREMENT MANAGER History Family History Family History: Reviewed,noncontributory to illness Social History Smoker: Non-Smoker Alcohol: Occasionally Drugs: Denies Drug Use Lives In: Home All Other Systems: Reviewed and Negative (Comprehensive systems review obtained and negative except for what is stated in the HPI.) Physical Exam General Appearance: Obese, Other (appears uncomfortable ) HEENT: Pharynx Normal, TMs Normal, Other (left-facial droop, otherwise normal HEENT inspection) Neck: Full Range of Motion, Non-Tender, Normal, Normal Inspection Respiratory: Chest Non-Tender, Lungs Clear, No Accessory Muscle Use, No Respiratory Distress, Normal Breath Sounds Cardiovascular: No Edema, No JVD, No Murmur, No Gallop, Normal Peripheral Pulses, Regular Rate/Rhythm Breast Exam: Deferred Gastrointestinal: No Organomegaly, Non Tender, No Pulsatile Mass, Normal Bowel Sounds, Soft Genitalia: Deferred Pelvic: Deferred Rectal: Deferred Extremities: No calf tenderness, Normal capillary refill, Normal inspection, Normal range of motion, Non-tender, No pedal edema Musculoskeletal : Apperance: Normal Neurologic: Alert, boston cutter II-XII nml as Tested, Facial Droop (left-sided ), Normal Affect, Normal Mood, No Sensory Deficits, Speech Problem (slurred speech ), Other (right-sided deficits secondary to CVA ) Cerebellar Function: Normal Reflexes: Normal Skin: Dry, Normal Color, Warm Lymphatic: No Adenopathy Was a procedure done? Was a procedure done?: No EKG EKG : Pulse Rate (adult): 66 [place]: Normal Cardiac Rhythm: NSR Block: None Hypertrophy: None ST: Normal Differential Dx Considerations may include: MA, ACS, PE, URI, viral syndrome, PNA, costochondritis, pericarditis, vertigo, musculoskeletal pain, among others X-Ray, Labs, Meds, VS Vital Signs Date Time Temp Pulse Resp B/P (MAP) Pulse Ox O2 Delivery O2 Flow Rate FiO2 11/05/24 21:02 62 19 129/61 11/05/24 20:49 67 11/05/24 20:33 98.7 62 19 129/61 (83) 90 98.7 11/05/24 20:00 66 11/05/24 19:47 98.6 74 18 167/89 (115) 96 98.6 11/05/24 19:40 66 Lab Test 11/05/24 20:35 11/05/24 19:52 Range/Units Troponin I High Sensitivity < 3 L < 3 L </=34 ng/L White Blood Count 7.8 4.4-10.8 10^3/uL Red Blood Count 4.71 4.0-5.20 10^6/uL Hemoglobin 14.3 12.2-16.2 g/dL Hematocrit 43.0 36.0-46.0 % Mean Corpuscular Volume 91.3 80.0-100.0 fL Mean Corpuscular Hemoglobin 30.4 28.0-32.0 pg Mean Corpuscular Hemoglobin Concent 33.3 32.0-36.0 g/dL Red Cell Distribution Width 14.9 H 11.8-14.3 % Platelet Count 271 140-450 10^3/uL Mean Platelet Volume 8.8 6.9-10.8 fL Neutrophils (%) (Auto) 67.8 37.0-80.0 % Lymphocytes (%) (Auto) 13.4 10.0-50.0 % Monocytes (%) (Auto) 11.9 0.0-12.0 % Eosinophils (%) (Auto) 5.5 0.0-7.0 % Basophils (%) (Auto) 1.4 0.0-2.0 % Neutrophils # (Auto) 5.3 1.6-8.6 10 ^3/uL Lymphocytes # (Auto) 1.1 0.4-5.4 10 ^3/uL Monocytes # (Auto) 0.9 0-1.3 10 ^3/uL Eosinophils # (Auto) 0.4 0-0.8 10 ^3/uL Basophils # (Auto) 0.1 0-0.2 10 ^3/uL Nucleated Red Blood Cells 0.1 % Sodium Level 141 136-145 mmol/L Potassium Level 4.0 3.5-5.1 mmol/L Chloride Level 106 98-107 mmol/L Carbon Dioxide Level 28 20-31 mmol/L Anion Gap 7 5-15 Blood Urea Nitrogen 13 9-23 mg/dL Creatinine 0.64 0.550-1.02 mg/dL Glomerular Filtration Rate Calc 98 >90 mL/min BUN/Creatinine Ratio 20.3 H 10.0-20.0 Serum Glucose 130 H 74-106 mg/dL Calcium Level 9.9 8.7-10.4 mg/dL B-Type Natriuretic Peptide 29.41 0-100 pg/mL Current Medications Medications (Trade) Dose Ordered Sig/Grisel Route Start Time Stop Time Status Last Admin Sodium Chloride 1,000 ml @ 1,000 mls/hr Q1H ONCE IV 11/05/24 19:45 11/05/24 20:44 DC 11/05/24 21:04 Morphine Sulfate 4 mg ONCE ONCE IV 11/05/24 19:45 11/05/24 19:46 DC 11/05/24 21:02 Ondansetron HCl (Zofran) 4 mg ONCE ONCE IV 11/05/24 19:45 11/05/24 19:46 DC 11/05/24 21:01 Aspirin 324 mg ONCE ONCE PO 11/05/24 19:45 11/05/24 19:46 DC 11/05/24 21:01 [place] [id number] Ph: [phone] DIAGNOSTIC IMAGING Diagnostic Imaging Report : [id number] Signed PATIENT: XENIA MOURA ACCT: [id number] UNIT: [id number] : 1960 LOC: ER ROOM / BED: / AGE / SEX: 64 / F ADM STATUS: REG ER SERVICE 47 ORDERING PHYSICIAN: LESLYE GREGORY MD PROCEDURE(s): CXRP - CHEST PORTABLE REASON: chest pain ORDER NUMBER(s): [id number], ACCESSION NUMBER(s): [id number] CHEST RADIOGRAPH Indication: chest pain Technique: Single frontal view of the chest was obtained Comparison: CXRP on DOS: 07/24/22, CHEST PORTABLE on DOS: 07/24/22, CXRP on DOS: 07/23/22 FINDINGS: Lines and Tubes: None Lungs: No focal consolidation. Mild interstitial prominence. Pleura: No effusion. No pneumothorax. Moderate cardiomegaly. Bones: No acute osseous abnormality. IMPRESSION: Moderate cardiomegaly with mild pulmonary vascular congestion. ATED BY: MARSHA RODRIGUEZ DO DICTATED DATE/TIME: 11/05/242020 SIGNED BY: MARSHA RODRIGUEZ DO SIGNED DATE/TIME: 11/05/242020 CC: Time of 1ST Reevaluation: 20:10 Reevaluation 1ST: Unchanged Patient Education/Counseling: Diagnosis, Treatment Family Education/Counseling: No Family Present Additional Information Previous visit documents reviewed: July 06, 2022 encounter for acute hypoxic respiratory failure The following tests were ordered, and results were reviewed by me: troponin, CXR, CBC, BMP, BNP Additional Information was gathered from interviewing the following independent historians: EMS I reviewed and agreed with the following test results read by other providers: CXR I discussed treatment and results with medical personnel and: Patient Departure 1 Departure Time of Disposition: 20:48 ([facility] Case Tracking Number to admit here: [id number] does not appear stable for transfer.Patient presented with chest pain that was concerning for possible STEMI, ACS, PE, Pneumonia, Muscle Strain, COPD, Dissection. Data: 1. I ordered and reviewed the result of at least 3 labs including a CBC, BMP, and Troponin. 2. I independently interpreted the following tests: EKG which shows sinus arrhythmia and Chest X- ray which shows pulmonary vascular congestion.Risk:This patient has a high risk of morbidity due to further diagnostic testing or treatment and may suffer from an acute cardiac or respiratory disorder. Workup reveals concern for ACS and patient should be admitted for further workup and possible expert consultation. ) Impression: Primary Impression: Acute chest pain Disposition: 09 ADMITTED INPATIENT Admit to: [facility] Condition: Serious Critical Care Note Critical Care Time?: Yes Critical care comment: Acute chest pain Authorized and Performed by: Leslye Gregory MD Total critical care time: Approximately 38 minutes Due to a high probability of clinically significant, life threatening deterioration, the patient required my highest level of preparedness to intervene emergently and I personally spent this critical care time directly and personally managing the patient. This critical care time included obtaining a history; examining the patient; pulse oximetry; ordering and review of studies; arranging urgent treatment with development of a management plan; evaluation of patient's response to treatment; frequent reassessment; and, discussions with other providers. This critical care time was performed to assess and manage the high probability of imminent, life-threatening deterioration that could result in multi-organ failure. It was exclusive of separately billable procedures and treating other patients and teaching time. Please see my other sections and the rest of the note for further information on patient assessment and treatment. Stability Stability form required: No Heart Score Heart Score: Heart Score Response (Comments) Value History Moderate Suspicious 1 EKG Normal 0 Age >65 2 Risk Factors >3 or Hx ASHD 2 Troponin Normal limit 0 Total 5 I personally scribed for LESLYE GREGORY MD ([email or web address]) on 11/05/24 at 20:00. Electronically submitted by Huan Rossi ([email or web address]). I personally scribed for LESLYE GREGORY MD ([email or web address]) on 11/05/24 at 20:47. Electronically submitted by Huan Rossi ([email or web address]). LESLYE GREGORY MD Nov 05, 2024 20:00
[2024-11-05 20:22] LABS: Chloride 106 mmol/L (98-107); Sodium 141 mmol/L (136-145)
[2024-11-05 20:23] LABS: Anion Gap 7 (5-15); Calcium 9.9 mg/dL (8.7-10.4); Carbon Dioxide 28 mmol/L (20-31)
--- NOTE | 2024-11-05 20:23 | DVH ---
CHEST RADIOGRAPH Indication: chest pain Technique: Single frontal view of the chest was obtained Comparison: CXRP on DOS: 07/24/22, CHEST PORTABLE on DOS: 07/24/22, CXRP on DOS: 07/23/22 FINDINGS: Lines and Tubes: None Lungs: No focal consolidation. Mild interstitial prominence. Pleura: No effusion. No pneumothorax. Moderate cardiomegaly. Bones: No acute osseous abnormality. IMPRESSION: Moderate cardiomegaly with mild pulmonary vascular congestion.
[2024-11-05 20:28] LABS: BUN/Creatinine Ratio 20.3 (10.0-20.0); Blood Urea Nitrogen 13 mg/dL (9-23)
[2024-11-05 20:33] VITALS: PULSE 62; RESP 19; O2SAT 90
[2024-11-05 20:33] LABS: Glucose 130 mg/dL (74-106)
[2024-11-05] MEDS: ONDANSETRON HCL 4 MG/2 ML VIAL IV ONE (21:01)
[2024-11-05] MEDS: ASPirin 81 mg TAB PO ONE (21:01)
[2024-11-05] MEDS: MORPHINE SULFATE 4 MG/ML SYR/VIAL IV ONE (21:02)
[2024-11-05] MEDS: SODIUM CHLORIDE 0.9% 1,000 ML IV ONE (21:04)
[2024-11-05] MEDS: NITROGLYCERIN 0.4 MG SL TAB SL ONE (21:15)
[2024-11-05] MEDS ORDERED: NITROGLYCERIN 0.4 MG SL TAB SL PRN (21:30)
[2024-11-05] MEDS ORDERED: ONDANSETRON HCL 4 MG/2 ML VIAL IV PRN (21:30)
[2024-11-05] MEDS ORDERED: ACETAMINOPHEN 325 MG TAB PO PRN (21:30)
[2024-11-05] MEDS ORDERED: MORPHINE SULFATE INJ 2 MG/ml SYRG IV PRN (21:30)
[2024-11-05] MEDS: ATORVASTATIN 20 MG TAB PO SCH (22:09)
--- NOTE | 2024-11-05 22:13 | DVHHP2 ---
History of Present Illness Reason for Visit: Chest pain History of Present Illness 64-year-old female with a history of CVA with right-sided deficits presents for evaluation of chest pain. Patient reports developing substernal chest pain which was unprovoked with associated dizziness. Denies nausea or vomiting or shortness for breath. She reports having a similar episode a week ago which resolved on its own. Denies any other acute complaints at the moment. Past Medical History Diabetes mellitus, hypertension, mi, dyslipidemia, atrial fibrillation, CVA Past Surgical History Hernia repair Family History Noncontributory Smoke: No ALCOHOL: none Drugs: None Lives: with Family Review of Systems Review of Systems Review of systems are currently negative otherwise addressed in HPI. Allergies: Coded Allergies: Penicillins (Verified Allergy, Unknown, 04/19/17) Medications Current Medications Medications Dose Ordered Sig/Grisel Route Start Time Stop Time Status Last Admin Dose Admin Aspirin 81 mg DAILY PO 11/06/24 10:00 Digoxin 0.125 mg DAILY PO 11/06/24 10:00 Atorvastatin Calcium 80 mg HS PO 11/05/24 22:00 11/05/24 22:09 80 MG Amiodarone HCl 200 mg DAILY PO 11/06/24 10:00 Diltiazem HCl 180 mg DAILY PO 11/06/24 10:00 Patient Own Medication 150 mg BID PO 11/05/24 22:00 UNV Ondansetron HCl 4 mg Q4HP PRN IV 11/05/24 21:30 Acetaminophen 650 mg Q6HP PRN PO 11/05/24 21:30 Nitroglycerin 0.4 mg Q5MINP PRN SL 11/05/24 21:30 Morphine Sulfate 2 mg Q30M PRN IV 11/05/24 21:30 Exam Vital Signs Vital Signs Date Time Temp Pulse Resp B/P (MAP) Pulse Ox O2 Delivery O2 Flow Rate FiO2 11/05/24 21:02 62 19 129/61 11/05/24 20:33 98.7 90 98.7 11/05/24 20:33 Room Air* 0 21 Exam Gen: 64-year-old female in no apparent distress, morbidly obese Skin: Warm, dry, normal color and texture, no rash. HEENT: Normocephalic atraumatic, mucous membranes moist and pink. Neck: Cervical and supraclavicular nodes normal without enlargement, trachea is midline, thyroid gland is normal without masses. Pulmonary: Clear to auscultation and percussion bilaterally. Cardiac: Regular rate and rhythm. No murmur Abdomen: Soft, nontender, nondistended, bowel sounds present all 4 quadrants, no guarding, no rigidity, no organomegaly. Extremities: No cyanosis, clubbing, no edema Neuro: Cranial nerves II through XII grossly intact, normal affect and speech, right-sided deficits from previous CVA Labs/Xrays ORDERING PHYSICIAN: LESLYE LEWIS MD PROCEDURE(s): CXRP - CHEST PORTABLE REASON: chest pain ORDER NUMBER(s): [id number], ACCESSION NUMBER(s): [id number] CHEST RADIOGRAPH Indication: chest pain Technique: Single frontal view of the chest was obtained Comparison: CXRP on DOS: 07/24/22, CHEST PORTABLE on DOS: 07/24/22, CXRP on DOS: 07/23/22 FINDINGS: Lines and Tubes: None Lungs: No focal consolidation. Mild interstitial prominence. Pleura: No effusion. No pneumothorax. Moderate cardiomegaly. Bones: No acute osseous abnormality. IMPRESSION: Moderate cardiomegaly with mild pulmonary vascular congestion. Labs Test 11/05/24 20:35 11/05/24 19:52 Range/Units Troponin I High Sensitivity < 3 L </=34 ng/L White Blood Count 7.8 4.4-10.8 10^3/uL Red Blood Count 4.71 4.0-5.20 10^6/uL Hemoglobin 14.3 12.2-16.2 g/dL Hematocrit 43.0 36.0-46.0 % Mean Corpuscular Volume 91.3 80.0-100.0 fL Mean Corpuscular Hemoglobin 30.4 28.0-32.0 pg Mean Corpuscular Hemoglobin Concent 33.3 32.0-36.0 g/dL Red Cell Distribution Width 14.9 H 11.8-14.3 % Platelet Count 271 140-450 10^3/uL Mean Platelet Volume 8.8 6.9-10.8 fL Neutrophils (%) (Auto) 67.8 37.0-80.0 % Lymphocytes (%) (Auto) 13.4 10.0-50.0 % Monocytes (%) (Auto) 11.9 0.0-12.0 % Eosinophils (%) (Auto) 5.5 0.0-7.0 % Basophils (%) (Auto) 1.4 0.0-2.0 % Neutrophils # (Auto) 5.3 1.6-8.6 10 ^3/uL Lymphocytes # (Auto) 1.1 0.4-5.4 10 ^3/uL Monocytes # (Auto) 0.9 0-1.3 10 ^3/uL Eosinophils # (Auto) 0.4 0-0.8 10 ^3/uL Basophils # (Auto) 0.1 0-0.2 10 ^3/uL Nucleated Red Blood Cells 0.1 % Sodium Level 141 136-145 mmol/L Potassium Level 4.0 3.5-5.1 mmol/L Chloride Level 106 98-107 mmol/L Carbon Dioxide Level 28 20-31 mmol/L Anion Gap 7 5-15 Blood Urea Nitrogen 13 9-23 mg/dL Creatinine 0.64 0.550-1.02 mg/dL Glomerular Filtration Rate Calc 98 >90 mL/min BUN/Creatinine Ratio 20.3 H 10.0-20.0 Serum Glucose 130 H 74-106 mg/dL Calcium Level 9.9 8.7-10.4 mg/dL B-Type Natriuretic Peptide 29.41 0-100 pg/mL Assessment/Plan Assessment/Plan Assessment Chest pain rule out ACS Diabetes mellitus Hypertension Morbidly obese History of CVA with right-sided deficits Plan Admit the patient to telemetry to the hospitalist Cardiology consultation ACS protocol Resume home medications Continue treatment per orders. Plan discussed with: Patient My Orders Orders - MILTON SORIA AGACN Procedure Category Date Status Time Aspirin Tablet PHA 11/06/24 In Process 10:00 Digoxin Tablet PHA 11/06/24 In Process (Lanoxin Tablet) 10:00 Atorvastatin (Lipitor) PHA 11/05/24 In Process 22:00 Amiodarone Tablet PHA 11/06/24 In Process (Cordarone Tablet) 10:00 Diltiazem Er Capsule PHA 11/06/24 In Process (Cardizem La Capsul 10:00 (Nf) Pradaxa PHA 11/05/24 Logged 22:00 Basic Metabolic Panel LAB 11/06/24 Logged 04:00 Admit ADMIT 11/05/24 Transmitted 21:30 Ondansetron Hcl PHA 11/05/24 In Process (Zofran) 21:30 Cardiac DIET 11/06/24 Transmitted Diet-2gna,Lofat,Lochol Breakfast Echo 2d Mode Cardiac US 11/05/24 Logged DOP 21:30 Condition: Fair JEFFREY 11/05/24 In Process 21:30 Acetaminophen Tablet PHA 11/05/24 In Process (Tylenol Tablet) 21:30 Bedrest With Bathroom JEFFREY 11/05/24 In Process Privileg 21:30 Nitroglycerin [facility] 11/05/24 In Process Sublingual (Ntrostat 21:30 Morphine Sulfate PHA 11/05/24 In Process Injection 21:30 Stat Ekg For Chest [facility] 11/05/24 In Process Pain 21:30 Notify Of Changes [facility] 11/05/24 In Process From Base 21:30 Fitness Teacher For [facility] 11/05/24 In Process 24 Hours 21:30 Emergency Dysrhythmia [facility] 11/05/24 In Process Protocol 21:30 Rhythm Strips Once [facility] 11/05/24 In Process Every Shift 21:30 Oxygen By Nasal RT 11/05/24 Transmitted Cannula 21:30 * Cardiology Consult CONS 11/05/24 Transmitted 22:09 Date of Service: Nov 05, 2024 Billing Provider: MILTON SORIA Common Visit Codes: [id number] INP/OBS CARE (HIGH) MILTON SORIA Nov 05, 2024 22:13
--- NOTE | 2024-11-05 22:43 | ECG ---
[facility] Test Date: 2024-11-05 Test Time: 22:41:23 Pat Name: XENIA MOURA Department: ED Room: 0221T Gender: F Spanish Literature Professor: DAVONTE : 1960 Requested By: LESLYE LEWIS Order Number: [id number] Reading MD: Gaurav King Measurements Intervals [place] Rate: 67 P: 24 IN: 197 QRS: 14 QRSD: 88 T: -1 QT: 434 QTc: 458 Interpretive Statements Sinus rhythm Anteroseptal infarct, age indeterminate Electronically Signed On 11-07-2024 14:05:53 PDT by Gaurav King Please click the below link to view image of tracing.
[2024-11-05 23:45] VITALS: BP 108/51; PULSE 69; RESP 19; TEMP 98.1; O2SAT 96
[2024-11-06] VITALS (8 sets, daily range): BP systolic 117–134; BP diastolic 56–66; PULSE 62–98; RESP 17–22; TEMP 97.4–98.8; O2SAT 93–96
[2024-11-06] MEDS ORDERED: AMIO200T13 PO (05:57)
[2024-11-06] MEDS ORDERED: DILT-26 PO (05:57)
[2024-11-06] MEDS ORDERED: FLUT1AER6 INH (05:59)
[2024-11-06] MEDS ORDERED: TIOT17SP INH (05:59)
--- NOTE | 2024-11-06 07:18 | ECG ---
[facility] Test Date: 2024-11-05 Test Time: 20:49:57 Pat Name: XENIA MOURA Department: ED Room: 0221T A Gender: F Firer Portable Boiler: ED : 1960 Requested By: LESLYE LEWIS Order Number: [id number] Reading MD: Gaurav King Measurements Intervals [place] Rate: 67 P: -64 RI: 175 QRS: 23 QRSD: 116 T: 247 QT: 385 QTc: 407 Interpretive Statements Sinus or ectopic atrial rhythm Nonspecific intraventricular conduction delay Anteroseptal infarct, age indeterminate Electronically Signed On 11-07-2024 14:05:34 PDT by Gaurav King Please click the below link to view image of tracing.
[2024-11-06 09:11] LABS: Potassium 4.1 mmol/L (3.5-5.1); Sodium 141 mmol/L (136-145)
[2024-11-06 09:12] LABS: Anion Gap 7 (5-15); Calcium 9.3 mg/dL (8.7-10.4); Carbon Dioxide 26 mmol/L (20-31)
[2024-11-06 09:17] LABS: BUN/Creatinine Ratio 15.9 (10.0-20.0); Blood Urea Nitrogen 10 mg/dL (9-23)
[2024-11-06 09:21] LABS: Chloride 108 mmol/L (98-107); Glucose 143 mg/dL (74-106)
--- NOTE | 2024-11-06 09:45 | DVHINCON2 ---
Date Seen: Nov 06, 2024 Referring Physician CADENCE Winchester Reason for Consultation Chest pain History of Present Illness This is a 64-year-old man who presented to the emergency room via EMS with a chief complaint of chest pain on 11/05/24 at 1800. Describes her chest pain as right-sided, radiating to the substernal area, tightness like, non provoked, and constant in nature prompting to call 911. The patient thought it was indigestion for which she took an antacid. Upon EMS arrival the patient was found in an atrial fibrillation rhythm at a controlled rate. Per patient, by the time she arrived to the emergency room the chest pain had dissipated. She underwent multiple 12 lead electrocardiograms x 3 revealing a sinus rhythm with nonspecific inferolateral changes. Serial troponin levels are negative. Significant medical history includes paroxysmal atrial fibrillation on Pradaxa/Cardizem/Digoxin/Amiodarone, vasculitis with history of multiple CVAs and associated dysarthria/right-sided hemiparesis/bed-bound status, dyslipidemia, pel-dhuiumj-djknwjqpx diabetes mellitus, and morbid obesity. Past Medical History Past medical history reviewed. No other significant than mentioned above. Past Surgical History Hernia repair Family History: FH: atrial fibrillation G8 FATHER Family History Family history reviewed. Social History Denies the use of illicit drugs, alcohol, or tobacco use. Allergies: Coded Allergies: Penicillins (Verified Allergy, Unknown, 04/19/17) Home Meds Reported Medications Fluticasone-Salmeterol (Wixela Inhub 250-50 Mcg/Dose) 1 Aer Aer, 1 PUFF INH BID 11/06/24 Tiotropium [place] Monohydrate (Spiriva Respimat) 2.5 Mcg/Act Spr, 1 PUFF INH BID 11/06/24 Diltiazem HCl Coated Beads (Diltiazem Hydrochloride E) 180 Mg Cap, 1 CAP PO DAILY 11/06/24 Amiodarone HCl (Amiodarone HCl) 200 Mg Tab, 0.5 TAB PO DAILY 11/06/24 Potassium Chloride (POTASSIUM CHLORIDE CR) 10 Meq Tb, 2 TAB PO DAILY, TAB 07/08/22 Azathioprine (Azathioprine) 50 Mg Tab, 2 TAB PO DAILY 07/08/22 Metformin Hydrochloride (Metformin Hcl) 500 Mg Tab, 500 MG PO BIDWM for 30 Days, MG 07/08/22 Digoxin (Digoxin) 125 Mcg Tab, 125 MCG PO DAILY, TAB 07/08/22 Atorvastatin Calcium (ATORVASTATIN CALCIUM) 80 Mg Tab, 80 MG PO DAILY, TAB 07/08/22 Dabigatran Etexilate Mesylate (Pradaxa) 150 Mg Cap, 150 MG PO BID, CAP 07/08/22 Home Meds Home medications reviewed. Current Medications Current Medications Medications (Trade) Dose Ordered Sig/Grisel Route PRN Reason Start Time Stop Time Status Last Admin Aspirin 81 mg DAILY PO 11/06/24 10:00 Digoxin (Lanoxin Tablet) 0.125 mg DAILY PO 11/06/24 10:00 Atorvastatin Calcium (Lipitor) 80 mg HS PO 11/05/24 22:00 11/05/24 22:09 Amiodarone HCl (Cordarone Tablet) 200 mg DAILY PO 11/06/24 10:00 Diltiazem HCl (Cardizem LA Capsule) 180 mg DAILY PO 11/06/24 10:00 Dabigatran (Pradaxa Capsule) 150 mg BID PO 11/06/24 10:00 Ondansetron HCl (Zofran) 4 mg Q4HP PRN IV NAUSEA / VOMITING 11/05/24 21:30 Acetaminophen (Tylenol Tablet) 650 mg Q6HP PRN PO PAIN SCALE 1-3 OR TEMP>100.4 11/05/24 21:30 Nitroglycerin (Ntrostat Sublingual) 0.4 mg Q5MINP PRN SL FOR CHEST PAIN 11/05/24 21:30 Morphine Sulfate 2 mg Q30M PRN IV FOR CHEST PAIN 11/05/24 21:30 Review of Systems Constitutional: No symptom reported Ears, Nose, & Throat: No symptom reported Eyes: No symptom reported Neurological: No symptoms reported Pulmonary/Respiratory: No symptom reported Cardiovascular: Chest pain Gastrointestinal: No symptom reported Genitourinary: No symptom reported Musculoskeletal: No symptom reported Skin: No symptom reported Psychiatric: No symptom reported Endocrine: No symptom reported Hemotologic/Lymphatic: No symptom reported Vital Signs Vital Signs Date Time Temp Pulse Resp B/P (MAP) Pulse Ox O2 Delivery O2 Flow Rate FiO2 11/06/24 08:58 98.0 74 19 121/58 (79) 93 98.0 11/06/24 04:23 Nasal Cannula* 3 32 Physical Exam General Appearance: Cooperative. Morbidly obese. + dysarthria Head Exam: Normal inspection Neck Exam: Normal inspection. Non-tender. Normal alignment Pulmonary/Respiratory: Chest non-tender. Diminished bilateral breath sounds Cardiovascular/Chest: Regular rate and rhythm. S1, S2. Sinus rhythm. No murmurs. No JVD. Peripheral Pulses: 2+ Radial (R). 2+ Radial (L). 2+ Pedal (R). 2+ Pedal (L) Abdominal Exam: Normal bowel sounds. Soft. Nontender. No hepatospenomegaly. No masses Ankle Exam: Positive ankle nonpitting edema Lower extremities: Positive lower extremity nonpitting edema Neuro/Mental Status: A&O x4. Coherent. + dysarthria. Right-sided hemiparesis. Right facial spasticity Thoughts/Psych: Normal thought pattern. Appropriate mood and affect. Good judgement and insight Appearance: In no acute distress Skin Exam: Normal inspection. Normal color. Warm. Dry Labs/Diagnostic Data Labs Test 11/06/24 08:42 11/05/24 20:35 11/05/24 19:52 Range/Units Sodium Level 141 136-145 mmol/L Potassium Level 4.1 3.5-5.1 mmol/L Chloride Level 108 H 98-107 mmol/L Carbon Dioxide Level 26 20-31 mmol/L Anion Gap 7 5-15 Blood Urea Nitrogen 10 9-23 mg/dL Creatinine 0.63 0.550-1.02 mg/dL Glomerular Filtration Rate Calc 98 >90 mL/min BUN/Creatinine Ratio 15.9 10.0-20.0 Serum Glucose 143 H 74-106 mg/dL Calcium Level 9.3 8.7-10.4 mg/dL Troponin I High Sensitivity < 3 L </=34 ng/L White Blood Count 7.8 4.4-10.8 10^3/uL Red Blood Count 4.71 4.0-5.20 10^6/uL Hemoglobin 14.3 12.2-16.2 g/dL Hematocrit 43.0 36.0-46.0 % Mean Corpuscular Volume 91.3 80.0-100.0 fL Mean Corpuscular Hemoglobin 30.4 28.0-32.0 pg Mean Corpuscular Hemoglobin Concent 33.3 32.0-36.0 g/dL Red Cell Distribution Width 14.9 H 11.8-14.3 % Platelet Count 271 140-450 10^3/uL Mean Platelet Volume 8.8 6.9-10.8 fL Neutrophils (%) (Auto) 67.8 37.0-80.0 % Lymphocytes (%) (Auto) 13.4 10.0-50.0 % Monocytes (%) (Auto) 11.9 0.0-12.0 % Eosinophils (%) (Auto) 5.5 0.0-7.0 % Basophils (%) (Auto) 1.4 0.0-2.0 % Neutrophils # (Auto) 5.3 1.6-8.6 10 ^3/uL Lymphocytes # (Auto) 1.1 0.4-5.4 10 ^3/uL Monocytes # (Auto) 0.9 0-1.3 10 ^3/uL Eosinophils # (Auto) 0.4 0-0.8 10 ^3/uL Basophils # (Auto) 0.1 0-0.2 10 ^3/uL Nucleated Red Blood Cells 0.1 % B-Type Natriuretic Peptide 29.41 0-100 pg/mL Assessment Possible cardiac chest pain, ?GERD Rule out structural heart disease Paroxysmal atrial fibrillation, now NSR (on Pradaxa/Cardizem/Amiodarone/Digoxin) Vasculitis with hx of multiple CVAs and bedbound status Otv-orxlbvv-mypbfmnky diabetes mellitus Dyslipidemia Morbid obesity Plan/Recommendation (Dr. King) The patient will undergo a transthoracic echocardiogram to rule out structural heart disease. Continue DOAC therapy with Pradaxa as well as amiodarone and Cardizem therapy. Hold digoxin as patient is currently in a sinus rhythm. The patient's chest pain resolved after taking an antacid. Doubts ACS given negative troponin levels and non-specific ST changes on 12-lead electrocardiograms. Given bedbound status we will continue conservative management at this time. Further orders per clinical course. Thank you for allowing us to participate in this patient's care. Please call if you have any questions or concerns. This medical document was created using an electronic medical record system with voice recognition software and computerized dictation system. Although this document has been carefully reviewed, there might still be some phonetic and typographical errors. Occasional wrong-word or ``sound-alike substitutions may have occurred due to the inherent limitations of voice recognition software. These areas are purely typographical due to imperfections of the software programs and do not reflect any compromise in the patient's medical care. Please read the chart carefully and recognize, using context, where these substitutions have occurred. Plan discussed with: Patient, Spouse, Other NYHA Physical activity limitations: NA Date of Service: Nov 06, 2024 Billing Provider: ANGELITA POLLARD Cardiology Common Codes: 00107-[id number] INP/OBS CARE (High) ANGELITA POLLARD Nov 06, 2024 09:45
[2024-11-06] MEDS ORDERED: DIGOXIN 0.125 MG TAB PO SCH (10:00)
--- NOTE | 2024-11-06 10:24 | DVHPN2 ---
Progress Note Date Seen: Nov 06, 2024 Medical Necessity Reason Pt with a Central, PICC or Fol: No Subjective Patient reports: No new complaints Review of Systems: HEENT:Normal, CVS:Normal, RESPIRATORY:Normal, GI:Normal, :Normal, MSK:Normal, NEURO:Normal Objective vital signs Vital Sign Date Time Temp Pulse Resp B/P (MAP) Pulse Ox O2 Delivery O2 Flow Rate FiO2 11/06/24 08:58 98.0 74 19 121/58 (79) 93 98.0 11/06/24 04:23 Nasal Cannula* 3 32 Total Intake and Output 11/05/24 11/05/24 11/06/24 15:00 23:00 07:00 Intake Total 250 ml Balance 250 ml medications Current Medications Medications Dose Ordered Sig/Grisel Route Start Time Stop Time Status Last Admin Dose Admin Aspirin 81 mg DAILY PO 11/06/24 10:00 Atorvastatin Calcium 80 mg HS PO 11/05/24 22:00 11/05/24 22:09 80 MG Amiodarone HCl 200 mg DAILY PO 11/06/24 10:00 Diltiazem HCl 180 mg DAILY PO 11/06/24 10:00 Dabigatran 150 mg BID PO 11/06/24 10:00 Ondansetron HCl 4 mg Q4HP PRN IV 11/05/24 21:30 Acetaminophen 650 mg Q6HP PRN PO 11/05/24 21:30 Nitroglycerin 0.4 mg Q5MINP PRN SL 11/05/24 21:30 Morphine Sulfate 2 mg Q30M PRN IV 11/05/24 21:30 Pantoprazole Sodium 40 mg DAILY IV 11/06/24 10:00 Examination: GENERAL:Normal, HEENT:Normal, NECK:Normal, LUNGS:Normal, CVS:Normal, ABDOMEN:Normal, MSK:Normal, SKIN:Normal, NEURO:Normal, NEURO:Abnormal (right weakness, dysarthria), :Normal laboratory and microbiology Laboratory Tests 11/06/24 08:42 11/05/24 19:52 Test 11/06/24 08:42 Range/Units Serum Glucose 143 H 74-106 mg/dL Problem List/Assessment/Plan Problem List/Assessment/Plan #1 chest pain ?cad: cardio eval #2 a fib with secondary hypercoagulable state: pradaxa, amiodarone #3 dm: ssi #4 multiple cvas with right hemplegia #5 vasculitis: on azathioprine #6 obesity #7 right upper limb swelling: doppler #8 hyperlipidemia advance care planning- full code- time spent - 21 mins Plan discussed with: Patient Date of Service: Nov 06, 2024 Billing Provider: MILTON LOPEZ MD Common Visit Codes: [id number] INP/OBS CARE(HIGH) Secondary Visit Codes: [id number] CARE PLAN 30 MINUTES MILTON LOPEZ MD Nov 06, 2024 10:24
[2024-11-06] MEDS ORDERED: DEXTROSE (50%) 50ML SYRG IV PRN (10:30)
[2024-11-06] MEDS: PANTOPRAZOLE 40 MG/10 ML VIAL INJ IV SCH (10:34)
[2024-11-06] MEDS: FUROSEMIDE 20 MG/2 ML VIAL IV ONE (10:35)
[2024-11-06] MEDS: ASPirin 81 mg TAB PO SCH (10:36)
[2024-11-06] MEDS: dilTIAZem HCL 180MG ER CAP PO SCH (10:37)
[2024-11-06] MEDS: AMIODARONE HCL 200 MG TAB PO SCH (10:38)
[2024-11-06] MEDS: DABIGATRAN 75 MG CAP PO SCH (10:39)
[2024-11-06] MEDS: ACCU-CHEK COMFORT CURVE STRIP VI SCH (11:30)
[2024-11-06] MEDS: InsuLIN REG 1unit/0.01ml Soln (100units/ml) SC SCH (12:51)
--- NOTE | 2024-11-06 12:52 | DVH ---
Upper Extremity Venous Duplex Clinical History: pain, DVT evaluation Comparison: None Technique: Duplex Doppler evaluation of the venous system of the RIGHT lower neck and upper extremity including color Doppler and spectral/pulsed waveform analysis was performed. Findings: The internal jugular vein demonstrates appropriate compressibility and waveform variability. The subclavian vein is patent on color Doppler evaluation without intraluminal thrombus and demonstra mony waveform variability. The visualized portion of the brachiocephalic vein is patent on color Doppler evaluation without intr aluminal thrombus and demonstrates waveform variability. The axillary vein demonstrates appropriate compressibility and waveform variability. The brachial veins demonstrate appropriate compressibility and patency on Doppler evaluation. The basilic vein demonstrates appropriate compressibility and patency on Doppler evaluation. The cephalic vein demonstrates appropriate compressibility and patency on Doppler evaluation. Impression: No venous thrombus identified in the RIGHT upper extremity vessels evaluated above. If clinical concern/symptoms persist or worsen, short-interval follow-up study is suggested.
--- NOTE | 2024-11-06 15:05 | DVHSR ---
APPROVED REPORT EXAM: LIMITED Two-dimensional and M-mode echocardiogram with Doppler and color Doppler. Blood Pressure: 128/60 mmHg INDICATION ef RISK FACTORS Obesity: Height: 5'10, Weight: 258 DIMENSIONS EF (%) 52.0 (55-70%)Rt. Atrium (1.9-4.0cm)Asc. Aorta cm Mitral Valve MitralMitral Stenosis E wave0.96m/sMV Mean GR.mmHg A wave0.98m/sMV Peak GR.mmHg E/A ratio1.02D MVAcm2 DECEL [id number] 1/2 [place] Aortic Valve Aortic ValveAortic Stenosis V11.08m/Nino Mean GR.mmHg V21.39m/Nino Peak GR.8mmHg LVOT Diameter2.1 (1.8-2.4cm)Doppler AVA2.69cm2 Other Information Quality : Technically LimitedRhythm : Technically limited study due to body habitus.patient position.patient moving. Conclusion Technically difficult study. Difficult acoustic windows. Mild left atrial enlargement. Mild LV enlargement. Valves appear to be structurally normal from the limited views obtained. Left ventricular function is mildly diminished. Left ventricular function appears preserved at 60% w ith normal RV function. Doppler reveals no significant regurgitant jets. Small pericardial effusion not hemodynamically significant. No masses or vegetations discernible
[2024-11-06 16:25] LABS: Urine Bacteria FEW /hpf (None Seen); Urine Blood Negative /uL (Negative); Urine Clarity Clear (Clear); Urine Color Colorless (Yellow); Urine Protein, UAD Negative (Negative); Urine Specific Gravity 1.006 (1.001-1.035); Urine Squamous Epithelial Cell FEW /hpf (<5); Urine Urobilinogen Normal (Negative); Urine WBC 4 /HPF (0-5); Urine pH 5.5 (5.0-9.0)
[2024-11-07 01:00] VITALS: BP 132/47; PULSE 55; RESP 18; TEMP 98.6; O2SAT 93
[2024-11-07 05:00] VITALS: BP 123/51; PULSE 56; RESP 17; TEMP 97.7; O2SAT 93
[2024-11-07 06:26] LABS: Basophils # (auto) 0.1 10 ^3/uL (0-0.2); Basophils % (auto) 2.1 % (0.0-2.0); Eosinophils # (auto) 0.6 10 ^3/uL (0-0.8); Eosinophils % (auto) 8.8 % (0.0-7.0); Hematocrit 44.1 % (36.0-46.0); Hemoglobin 14.6 g/dL (12.2-16.2); Mean Corpuscular Hemoglobin 30.4 pg (28.0-32.0); Mean Corpuscular Volume 92.1 fL (80.0-100.0); Monocytes % (auto) 15.3 % (0.0-12.0); Neutrophils # (auto) 3.8 10 ^3/uL (1.6-8.6); Neutrophils % (auto) 57.8 % (37.0-80.0); Nucleated Red Blood Cells % 0.1 %; Platelet Count (auto) 281 10^3/uL (140-450); Red Blood Cells 4.78 10^6/uL (4.0-5.20); Red Cell Distribution Width 14.7 % (11.8-14.3); White Blood Cell 6.6 10^3/uL (4.4-10.8)
[2024-11-07 06:41] LABS: Alanine Aminotransferase 16 U/L (7-40); Alkaline Phosphatase 69 U/L (46-116); Anion Gap 8 (5-15); Blood Urea Nitrogen 13 mg/dL (9-23); Calcium 10.2 mg/dL (8.7-10.4); Carbon Dioxide 30 mmol/L (20-31); Chloride 104 mmol/L (98-107); Glucose 124 mg/dL (74-106); Potassium 3.7 mmol/L (3.5-5.1); Sodium 142 mmol/L (136-145); Total Protein 7.2 g/dL (5.7-8.2)
[2024-11-07 06:42] LABS: Albumin 4.7 g/dL (3.2-4.8); Aspartate Aminotransferase 17 U/L (13-40); Bilirubin, Total 0.5 mg/dL (0.2-1.0)
[2024-11-07 08:00] VITALS: PULSE 59; RESP 18
[2024-11-07 08:54] VITALS: BP 133/58; PULSE 61; RESP 18; TEMP 98; O2SAT 93
--- NOTE | 2024-11-07 09:09 | ECG ---
[facility] Test Date: 2024-11-05 Test Time: 19:40:44 Pat Name: XENIA MOURA Department: ED Room: 0221T A Gender: F [employer]: ED : 1960 Requested By: LESLYE LEWIS Order Number: [id number] Reading MD: Gaurav King Measurements Intervals [place] Rate: 66 P: -58 CT: 154 QRS: 20 QRSD: 107 T: -35 QT: 424 QTc: 445 Interpretive Statements Sinus or ectopic atrial rhythm Low voltage, precordial leads Borderline T abnormalities, diffuse leads Electronically Signed On 11-07-2024 14:05:15 PDT by Gaurav King Please click the below link to view image of tracing.
--- NOTE | 2024-11-07 09:37 | DVHPN2 ---
Consult Progress Note Date Seen: Nov 07, 2024 Subjective Review of Systems: CVS:Normal, RESPIRATORY:Normal Other Systems: The patient denies any further chest pain events Objective vital signs Vital Sign Date Time Temp Pulse Resp B/P (MAP) Pulse Ox O2 Delivery O2 Flow Rate FiO2 11/07/24 08:54 98.0 61 18 133/58 (83) 93 98.0 11/06/24 20:00 Room Air* 0 N/A Nasal Cannula* Total Intake and Output 11/06/24 11/06/24 11/07/24 15:00 23:00 07:00 Intake Total 2200 ml 520 ml Balance 2200 ml 520 ml medications Current Medications Medications Dose Ordered Sig/Grisel Route Start Time Stop Time Status Last Admin Dose Admin Aspirin 81 mg DAILY PO 11/06/24 10:00 11/06/24 10:36 81 MG Atorvastatin Calcium 80 mg HS PO 11/05/24 22:00 11/06/24 22:32 80 MG Amiodarone HCl 200 mg DAILY PO 11/06/24 10:00 11/06/24 10:38 200 MG Diltiazem HCl 180 mg DAILY PO 11/06/24 10:00 11/06/24 10:37 180 MG Dabigatran 150 mg BID PO 11/06/24 10:00 11/06/24 22:32 150 MG Ondansetron HCl 4 mg Q4HP PRN IV 11/05/24 21:30 Acetaminophen 650 mg Q6HP PRN PO 11/05/24 21:30 Nitroglycerin 0.4 mg Q5MINP PRN SL 11/05/24 21:30 Morphine Sulfate 2 mg Q30M PRN IV 11/05/24 21:30 Pantoprazole Sodium 40 mg DAILY IV 11/06/24 10:00 11/06/24 10:34 40 MG Azathioprine 100 mg DAILY PO 11/07/24 10:00 Diagnostic Test (Pha) 1 strip ACHS 11/06/24 11:30 11/07/24 05:58 1 STRIP Insulin Human Regular ACHS SC 11/06/24 11:30 11/07/24 06:02 2 UNITS Dextrose 50 ml UD PRN IV 11/06/24 10:30 Examination: LUNGS:Normal, CVS:Normal, NEURO:Abnormal (Chronic dysarthria, right sided hemiparesis) laboratory and microbiology Laboratory Tests 11/07/24 05:31 Test 11/07/24 05:31 Range/Units Serum Glucose 124 H 74-106 mg/dL Problem List/Assessment/Plan Problem List/Assessment/Plan Possible cardiac chest pain, ?GERD Paroxysmal atrial fibrillation, now NSR (on Pradaxa/Cardizem/Amiodarone/Digoxin) Vasculitis with hx of multiple CVAs and bedbound status Xdi-svmefgy-lnenzzggv diabetes mellitus, HgbA1C 7.0% Dyslipidemia Morbid obesity Plan/Recommendation (Dr. King) Transthoracic echocardiogram revealed EF 60% with normal RV function. Continue DOAC therapy with Pradaxa as well as amiodarone and Cardizem therapy. Hold digoxin as patient is currently in a sinus rhythm. The patient's chest pain resolved after taking an antacid and there are no further anginal events during admission. Doubts ACS given negative troponin levels and non-specific ST changes on 12-lead electrocardiograms. Consider an outpatient stress test if deemed necessary. There is no further cardiac work-up indicated at this time. Kindly call if in need to re-consult. Thank you for allowing us to participate in this patient's care. This medical document was created using an electronic medical record system with voice recognition software and computerized dictation system. Although this document has been carefully reviewed, there might still be some phonetic and typographical errors. Occasional wrong-word or ``sound-alike substitutions may have occurred due to the inherent limitations of voice recognition software. These areas are purely typographical due to imperfections of the software programs and do not reflect any compromise in the patient's medical care. Please read the chart carefully and recognize, using context, where these substitutions have occurred. Plan discussed with: Patient, Other Date of Service: Nov 07, 2024 Billing Provider: ANGELITA POLLARD Cardiology Common Codes: [id number] INP/OBS CARE(Mod) ANGELITA POLLARD Nov 07, 2024 09:37
[2024-11-07] MEDS: azaTHIOprine 50 MG TAB PO SCH (10:34)
--- NOTE | 2024-11-07 10:35 | DVHDS2 ---
Discharge Summary Date of Admission Nov 05, 2024 at 21:30 Date of Discharge: Nov 07, 2024 Labs/Diagnostic Data: Laboratory Results Test 11/07/24 05:58 11/07/24 05:31 11/06/24 15:58 11/05/24 20:35 POC Glucose 159 mg/dl (70-106) White Blood Count 6.6 10^3/uL (4.4-10.8) Red Blood Count 4.78 10^6/uL (4.0-5.20) Hemoglobin 14.6 g/dL (12.2-16.2) Hematocrit 44.1 % (36.0-46.0) Mean Corpuscular Volume 92.1 fL (80.0-100.0) Mean Corpuscular Hemoglobin 30.4 pg (28.0-32.0) Mean Corpuscular Hemoglobin Concent 33.0 g/dL (32.0-36.0) Red Cell Distribution Width 14.7 % (11.8-14.3) Platelet Count 281 10^3/uL (140-450) Mean Platelet Volume 8.8 fL (6.9-10.8) Neutrophils (%) (Auto) 57.8 % (37.0-80.0) Lymphocytes (%) (Auto) 16.0 % (10.0-50.0) Monocytes (%) (Auto) 15.3 % (0.0-12.0) Eosinophils (%) (Auto) 8.8 % (0.0-7.0) Basophils (%) (Auto) 2.1 % (0.0-2.0) Neutrophils # (Auto) 3.8 10 ^3/uL (1.6-8.6) Lymphocytes # (Auto) 1.0 10 ^3/uL (0.4-5.4) Monocytes # (Auto) 1.0 10 ^3/uL (0-1.3) Eosinophils # (Auto) 0.6 10 ^3/uL (0-0.8) Basophils # (Auto) 0.1 10 ^3/uL (0-0.2) Nucleated Red Blood Cells 0.1 % Sodium Level 142 mmol/L (136-145) Potassium Level 3.7 mmol/L (3.5-5.1) Chloride Level 104 mmol/L (98-107) Carbon Dioxide Level 30 mmol/L (20-31) Anion Gap 8 (5-15) Blood Urea Nitrogen 13 mg/dL (9-23) Creatinine 0.65 mg/dL (0.550-1.02) Glomerular Filtration Rate Calc 98 mL/min (>90) BUN/Creatinine Ratio 20.0 (10.0-20.0) Serum Glucose 124 mg/dL (74-106) Hemoglobin A1c 7.0 % A1C (<5.7) Calcium Level 10.2 mg/dL (8.7-10.4) Total Bilirubin 0.5 mg/dL (0.2-1.0) Aspartate Amino Transferase (AST) 17 U/L (13-40) Alanine Aminotransferase (ALT) 16 U/L (7-40) Alkaline Phosphatase 69 U/L (46-116) Total Protein 7.2 g/dL (5.7-8.2) Albumin 4.7 g/dL (3.2-4.8) Thyroid Stimulating Hormone (TSH) 4.05 uIU/mL (0.55-4.78) Urine Color Colorless (Yellow) Urine Clarity Clear (Clear) Urine pH 5.5 (5.0-9.0) Urine Specific [place] 1.006 (1.001-1.035) Urine Protein Negative (Negative) Urine Ketones Negative (Negative) Urine Blood Negative /uL (Negative) Urine Nitrite Negative (Negative) Urine Bilirubin Negative (Negative) Urine Urobilinogen Normal mg/dL (Negative) Urine Leukocyte Esterase Trace /uL (Negative) Urine RBC 1 /hpf (0 - 4) Urine Microscopic WBC 4 /HPF (0-5) Urine Squamous Epithelial Cells Few /hpf (<5) Urine Bacteria Few /hpf (None Seen) Urine Glucose Normal mg/dL (Normal) Troponin I High Sensitivity < 3 ng/L (</=34) Test 11/05/24 19:52 B-Type Natriuretic Peptide 29.41 pg/mL (0-100) Other Laboratory Tests 11/07/24 05:31 Brief Hx & Hospital Course: see dictated note Condition at Discharge: Fair Final Diagnosis/Problems List chest pain Discharge Disposition: Home Discharge Instruct/Medications Diet: Cardiac 2g Na,low cholest Activity: No Restrictions, As Tolerated Follow Up/Referral: fu with [place] Medications: resume home meds Discharge Statement: "Patient was advised to return to the ER or call 911 if any headaches, dizziness, shortness of breath, chest pain, abdominal pain, bleeding, fevers, or worsening of medical condition. Patient was counseled about treatment plan, medications, possible side effects, patientverbalized understanding. All questions were answered to the best of my ability. This discharge took greater then 30 minutes in planning, reviewing documentation, counseling the patient, and discussing with other team members." ASSESSMENT ASSESSMENT Assessment chest pain Date of Service: Nov 07, 2024 Billing Provider: MILTON LOPEZ MD Common Visit Codes: [id number]/OBS DISCH DAY >30min MILTON LOPEZ MD Nov 07, 2024 10:35
--- NOTE | 2024-11-07 11:34 | DVHDS ---
DATE OF DISCHARGE: 11/07/2024 HISTORY OF PRESENT ILLNESS: The patient is a 64-year-old lady who was admitted with complaints of chest pain and dizziness. She has history of CVA with right sided weakness, diabetes, hypertension, atrial fibrillation and coronary artery disease. HOSPITAL COURSE: The patient had a chest x-ray that showed moderate cardiomegaly with mild pulmonary venous congestion. Doppler of right upper extremity was negative for DVT. The patient was seen in Cardiology consult by Dr. King. Echocardiogram done showed ejection fraction of 60%. The patient is now improved in his symptoms. She will be discharged home to resume her home medications and follow up with her physicians at [place]. FINAL DIAGNOSES: Therefore, * Chest pain, with coronary artery disease ruled out. * Questionable acute diastolic heart failure. * Atrial fibrillation with secondary hypercoagulable state. * Diabetes mellitus. * History of multiple cerebrovascular accidents, with right hemiplegia. * Vasculitis. * Obesity. * Hyperlipidemia. Time spent in discharge planning and review of plan with the patient and nursing was 38 minutes. MD BENJAMIN Arroyo/GOLDIE TID: [id number] RECEIPT: [id number]
[2024-11-07] MEDS: POTASSIUM CHL 20 Meq TABLET PO ONE (11:44)
[2024-11-07] MEDS: FUROSEMIDE 20 MG/2 ML VIAL IV ONE (11:44)
[2024-11-07 12:55] VITALS: BP 144/53; PULSE 65; RESP 19; TEMP 97.8; O2SAT 96
[2024-11-07 13:45] VITALS: BP 134/54; PULSE 60; RESP 18; TEMP 98; O2SAT 96
== END 2024-11-07 13:45 | disposition home or self-care (01) | DRG 291 ==
LOC: ER 19:34 → EDBD 19:34 → OVERFLOW 21:30 → TELE-CENTR 22:56
PROVIDERS: ADMIT Internal Medicine; ATTEND Internal Medicine
DX: I11.0 Hypertensive heart disease with heart failure (principal); I50.31 Acute diastolic (congestive) heart failure; D68.69 Other thrombophilia; I69.351 Hemiplegia and hemiparesis following cerebral infarction affecting right dominant side; K21.9 Gastro-esophageal reflux disease without esophagitis; E66.01 Morbid (severe) obesity due to excess calories; I77.6 Arteritis, unspecified; E78.5 Hyperlipidemia, unspecified; I48.0 Paroxysmal atrial fibrillation; E11.9 Type 2 diabetes mellitus without complications; R09.89 Other specified symptoms and signs involving the circulatory and respiratory systems; Z68.37 Body mass index [BMI] 37.0-37.9, adult; Z79.01 Long term (current) use of anticoagulants; Z88.0 Allergy status to penicillin; Z79.899 Other long term (current) drug therapy; Z79.84 Long term (current) use of oral hypoglycemic drugs; Z74.01 Bed confinement status
CPT/HCPCS: 36415; 71045; 80048; 80053; 81001; 82962; 83036; 83880; 84443; 84484; 85025; 93005; 93306; 93971; 96361; 96374; 96375; 99291; G0378; J1815; J2405; J2470

== ENCOUNTER 2024-11-13 10:47 | Emergency (ER) | payer OTHER ==
[~2024-11-13] VITALS: Ht 165.1 cm; Wt 109.0 kg
[~2024-11-13 10:47] MED LIST changes: +AMIO200T13 PO; -AMIO200T33 PO; +DILT-26 PO; -DILT60TA PO; +FLUT1AER6 INH; +TIOT17SP INH; -[UNRECOGNIZED DRUG - CODE] PO
--- NOTE | 2024-11-13 11:19 | ECG ---
[facility] Test Date: 2024-11-13 Test Time: 11:17:52 Pat Name: XENIA MOURA Department: ED Room: Gender: F Slab Stripper: gp : 1960 Requested By: LESLYE LEWIS Order Number: [id number] Reading MD: Gaurav King Measurements Intervals [place] Rate: 78 P: 28 TN: 177 QRS: 19 QRSD: 88 T: 0 QT: 478 QTc: 545 Interpretive Statements Sinus rhythm Atrial premature complexes Anteroseptal infarct, age indeterminate Prolonged QT interval Baseline wander in lead(s) V6 Electronically Signed On 11-13-2024 22:15:44 PDT by Gaurav King Please click the below link to view image of tracing.
--- NOTE | 2024-11-13 11:21 | ED.PDOC ---
SOB-HPI HPI Comments 64Y F with PMHx DM, HTN, HLD, Afib, PA, and CVA (rt sided deficits) presents to ED via EMS for chief complaint SOB x 2days with flu-like symptoms, chest pain, and productive cough. Pt denies abd pain and n/v/d. Chest pain is present on inspiration. Per EMS, SpO2 80% on RA with wheezing. After breathing tx and being placed on 2L/min O2, SpO2 increased to 95%. Pt was discharged from [facility] on 11/07/2024 dx chest pain r/o ACS and on 07/30/2022 dx acute hypoxic respiratory failure. No other symptoms/history reported. Chief Complaint: Shortness of Breath Time Seen by MD: 10:55 Primary Care Provider: FAHEEM Das notes: Nurses Notes, Staff Toxicologist Notes, Medications, Allergies Information Source: Patient, Emergency Med Personnel Mode of Arrival: EMS Brought in by: EMS Severity: Moderate Timing: Days Duration: Since onset Context: At Rest PE Risk Factors: None History of: None Prehospital treatment: Oxygen Modifying Factors: Nothing Associated Signs and Symptoms: Cough, Chest Pain Quality: Other Radiation: No Radiation Location: Substernal If cough with SOB: Productive, Yellow, Green Past Medical History PAST MEDICAL HISTORY: AFIB, CVA, DM, High Lipids, HTN, PA Surgical History: Hernia Repair STUDIO ENGINEER History: No Pertinent STUDIO ENGINEER History Family History Family History: Reviewed,noncontributory to illness Social History Smoker: Non-Smoker Alcohol: Occasionally Drugs: Denies Drug Use Lives In: Home Constitutional: denies: chills, diaphoresis, fatigue, fever, malaise, sweats, weakness, others EENTM: denies: blurred vision, double vision, ear bleeding, ear discharge, ear drainage, ear pain, ear ringing, eye pain, eye redness, hearing loss, mouth pain, mouth swelling, nasal discharge, nose bleeding, nose congestion, nose pain, photophobia, tearing, throat pain, throat swelling, voice changes, others Respiratory: reports: cough, shortness of breath; denies: hemoptysis, orthopnea, SOB at rest, SOB with excertion, stridor, wheezing, others Cardiovascular: reports: chest pain; denies: dizzy spells, diaphoresis, Dyspnea on exertion, edema, irregular heart beat, left arm pain, lightheadedness, palp itations, PND, syncope, others Gastrointestinal: denies: abdomen distended, abdominal pain, blood streaked bowels, constipated, diarrhea, dysphagia, difficulty swallowing, hematemesis, melena, nausea, poor appetite, poor fluid intake, rectal bleeding, rectal pain, vomiting, others Genitourinary: denies: abnormal vagina bleeding, burning, dyspareunia, dysuria, flank pain, frequency, hematuria, incontinence, pain, , vagina discharge, urgency, others Neurological: denies: dizziness, fainting, headache, left sided numbness, left sided weakness, numbness, paresthesia, pre-existing deficit, right sided numbness, right sided weakness, seizure, speech problems, tingling, tremors, weakness, others Musculoskeletal: denies: back pain, gout, joint pain, joint swelling, muscle pain, muscle stiffness, neck pain, others Integumetry: denies: bruises, change in color, change in hair/nails, dryness, laceration, lesions, lumps, rash, wounds, others Allergic/Immunocompromised: denies: Difficulty Healing, Frequent Infections, Hives, Itching, others Hematologic/Lymphatic: denies: anemia, blood clots, easy bleeding, easy br uising, swollen glands, others Endocrine: denies: excessive hunger, excessive sweating, excessive thirst, excessive urination, flushing, intolerance to cold, intolerance to heat, unexplained weight gain, unexplained weight loss, others Psychiatric: denies: anxiety, bipolar disorder, depression, hopeless, panic disorder, schizophrenia, sleepless, suicidal, others All Other Systems: Reviewed and Negative Physical Exam General Appearance: No Apparent Distress, Normal HEENT: Normal ENT Inspection, Pharynx Normal, TMs Normal Neck: Full Range of Motion, Non-Tender, Normal, Normal Inspection Respiratory: Chest Non-Tender, Lungs Clear, No Accessory Muscle Use, No Respiratory Distress, Normal Breath Sounds Cardiovascular: No Edema, No JVD, No Murmur, No Gallop, Normal Peripheral Pulses, Regular Rate/Rhythm Breast Exam: Deferred Gastrointestinal: No Organomegaly, Non Tender, No Pulsatile Mass, Normal Bowel Sounds, Soft Genitalia: Deferred Pelvic: Deferred Rectal: Deferred Extremities: No calf tenderness, Normal capillary refill, Normal inspection, Normal range of motion, Non-tender, No pedal edema Musculoskeletal : Apperance: Normal Neurologic: Alert, analytics manager II-XII nml as Tested, No Motor Deficits, Normal Affect, Normal Mood, No Sensory Deficits Cerebellar Function: NOT DONE Reflexes: NOT DONE Skin: Dry, Normal Color, Warm Lymphatic: No Adenopathy Was a procedure done? Was a procedure done?: No Differential Dx Differential Diagnosis: Bronchitis, CHF, Pneumonia, URI X-Ray, Labs, Meds, VS Vital Signs Date Time Temp Pulse Resp B/P (MAP) Pulse Ox O2 Delivery O2 Flow Rate FiO2 11/13/24 15:00 84 14 140/57 (84) 94 11/13/24 14:00 78 25 158/67 (97) 93 11/13/24 13:00 77 26 142/73 (96) 95 11/13/24 12:00 81 11/13/24 12:00 98.9 82 22 158/68 (98) 95 98.9 11/13/24 11:50 94 Nasal Cannula* 2 28 11/13/24 11:40 82 23 96 Nasal Cannula* 2 28 11/13/24 11:17 78 11/13/24 11:07 82 23 172/81 (111) 96 11/13/24 10:54 99.4 88 24 147/86 (106) 95 99.4 Lab Test 11/13/24 15:06 11/13/24 14:20 11/13/24 13:10 11/13/24 11:35 Range/Units Urine Color Yellow Yellow Urine Clarity Turbid H Clear Urine pH 5.5 5.0-9.0 Urine Specific [place] 1.028 1.001-1.035 Urine Protein 2+ H Negative Urine Ketones 1+ H Negative Urine Blood Trace H Negative /uL Urine Nitrite 2+ H Negative Urine Bilirubin Negative Negative Urine Urobilinogen Normal Negative mg/dL Urine Leukocyte Esterase 3+ Negative /uL Urine RBC 18 0 - 4 /hpf Urine Microscopic WBC 115 H 0-5 /HPF Urine Squamous Epithelial Cells Few <5 /hpf Urine Bacteria Many H None Seen /hpf Urine Mucus Few None Seen Urine Glucose 2+ H Normal mg/dL Troponin I High Sensitivity 4 4 3 L </=34 ng/L White Blood Count 16.2 #H 4.4-10.8 10^3/uL Red Blood Count 5.13 4.0-5.20 10^6/uL Hemoglobin 15.8 12.2-16.2 g/dL Hematocrit 47.5 H 36.0-46.0 % Mean Corpuscular Volume 92.5 80.0-100.0 fL Mean Corpuscular Hemoglobin 30.8 28.0-32.0 pg Mean Corpuscular Hemoglobin Concent 33.3 32.0-36.0 g/dL Red Cell Distribution Width 14.4 H 11.8-14.3 % Platelet Count 304 140-450 10^3/uL Mean Platelet Volume 8.6 6.9-10.8 fL Neutrophils (%) (Auto) 80.9 H 37.0-80.0 % Lymphocytes (%) (Auto) 4.8 L 10.0-50.0 % Monocytes (%) (Auto) 13.0 H 0.0-12.0 % Eosinophils (%) (Auto) 0.6 0.0-7.0 % Basophils (%) (Auto) 0.7 0.0-2.0 % Neutrophils # (Auto) 13.1 H 1.6-8.6 10 ^3/uL Lymphocytes # (Auto) 0.8 0.4-5.4 10 ^3/uL Monocytes # (Auto) 2.1 H 0-1.3 10 ^3/uL Eosinophils # (Auto) 0.1 0-0.8 10 ^3/uL Basophils # (Auto) 0.1 0-0.2 10 ^3/uL Nucleated Red Blood Cells 0.0 % Sodium Level 136 # 136-145 mmol/L Potassium Level 4.2 3.5-5.1 mmol/L Chloride Level 99 98-107 mmol/L Carbon Dioxide Level 25 20-31 mmol/L Anion Gap 12 5-15 Blood Urea Nitrogen 11 9-23 mg/dL Creatinine 0.70 0.550-1.02 mg/dL Glomerular Filtration Rate Calc 96 >90 mL/min BUN/Creatinine Ratio 15.7 10.0-20.0 Serum Glucose 193 H 74-106 mg/dL Calcium Level 10.2 8.7-10.4 mg/dL B-Type Natriuretic Peptide 67.56 0-100 pg/mL Current Medications Medications (Trade) Dose Ordered Sig/Grisel Route Start Time Stop Time Status Last Admin Azithromycin (Zithromax Tablet) 500 mg ONCE ONCE PO 11/13/24 15:30 11/13/24 16:04 DC 11/13/24 17:20 Cefepime HCl 50 ml @ 12.5 mls/hr ONCE ONCE IV 11/13/24 15:30 11/13/24 19:29 11/13/24 17:20 Vancomycin HCl 200 ml @ 200 mls/hr ONCE ONCE IV 11/13/24 15:30 11/13/24 16:29 DC 11/13/24 18:19 [place] [address] Ph: [phone] DIAGNOSTIC IMAGING Diagnostic Imaging Report : [id number] Signed PATIENT: XENIA MOURA ACCT: [id number] UNIT: [id number] : 1960 LOC: ER ROOM / BED: / AGE / SEX: 64 / F ADM STATUS: REG ER SERVICE 1054 ORDERING PHYSICIAN: LESLYE LEWIS MD PROCEDURE(s): CXRP - CHEST PORTABLE REASON: chest pain ORDER NUMBER(s): [id number], ACCESSION NUMBER(s): [id number] EXAM: XY CHEST PORTABLE HISTORY: chest pain COMPARISON: XY CHEST PORTABLE on DOS: 11/05/24, CXRP on DOS: 07/24/22, CHEST PORTABLE on DOS: 07/24/22, CXRP on DOS: 07/23/22, CHEST PORTABLE on DOS: 07/23/22 TECHNIQUE: Portable AP view of the chest was performed. FINDINGS: No pneumothorax or consolidative infiltrates. There is central pulmonary vascular congestion, stable. The heart is enlarged. IMPRESSION: Stable cardiomegaly and pulmonary vascular congestion. ATED BY: AMANDA STONE MD DICTATED DATE/TIME: 11/13/24 1119 SIGNED BY: AMANDA STONE MD SIGNED DATE/TIME: 11/13/24 1119 CC: Time of 1ST Reevaluation: 11:25 Reevaluation 1ST: Unchanged Patient Education/Counseling: Diagnosis, Treatment Family Education/Counseling: No Family Present Departure 1 Departure Time of Disposition: 18:21 ([place] Authorization: [id number] presents with symptoms concerning for acs vs pneumonia vs uti. Will empirically cover paitent with antibiotics and admit.) Impression: Primary Impression: Complicated urinary tract infection Additional Impressions: Generalized weakness Acute chest pain Disposition: 09 ADMITTED INPATIENT Admit to: Med Surg Condition: Serious Critical Care Note Critical Care Time?: Yes Critical care comment: Acute chest pain Authorized and Performed by: Leslye Lewis MD Total critical care time: Approximately 33 minutes Due to a high probability of clinically significant, life threatening deterioration, the patient required my highest level of preparedness to intervene emergently and I personally spent this critical care time directly and personally managing the patient. This critical care time included obtaining a history; examining the patient; pulse oximetry; ordering and review of studies; arranging urgent treatment with development of a management plan; evaluation of patient's response to treatment; frequent reassessment; and, discussions with other providers. This critical care time was performed to assess and manage the high probability of imminent, life-threatening deterioration that could result in multi-organ failure. It was exclusive of separately billable procedures and treating other patients and teaching time. Please see my other sections and the rest of the note for further information on patient assessment and treatment. Stability Stability form required: No Heart Score Heart Score: Heart Score Response (Comments) Value History Slightly Suspicious 0 EKG Normal 0 Age >65 2 Risk Factors 1 or 2 risk factors 1 Troponin Normal limit 0 Total 3 I personally scribed for LESLYE LEWIS MD ([email or web address] on 11/13/24 at 11:21. Electronically submitted by Mariely Beasley ([facility]). I personally scribed for LESLYE LEWIS MD ([email or web address]) on 11/13/24 at 11:28. Electronically submitted by Mariely Beasley ([facility]). LESLYE LEWIS MD Nov 13, 2024 11:21
--- NOTE | 2024-11-13 11:21 | DVH ---
EXAM: XY CHEST PORTABLE HISTORY: chest pain COMPARISON: XY CHEST PORTABLE on DOS: 11/05/24, CXRP on DOS: 07/24/22, CHEST PORTABLE on DOS: 07/24/22 , CXRP on DOS: 07/23/22, CHEST PORTABLE on DOS: 07/23/22 TECHNIQUE: Portable AP view of the chest was performed. FINDINGS: No pneumothorax or consolidative infiltrates. There is central pulmonary vascular congestion, stable . The heart is enlarged. IMPRESSION: Stable cardiomegaly and pulmonary vascular congestion.
[2024-11-13 11:40] VITALS: PULSE 82; RESP 23; O2SAT 96
[2024-11-13 11:51] LABS: Basophils # (auto) 0.1 10 ^3/uL (0-0.2); Basophils % (auto) 0.7 % (0.0-2.0); Eosinophils # (auto) 0.1 10 ^3/uL (0-0.8); Eosinophils % (auto) 0.6 % (0.0-7.0); Hematocrit 47.5 % (36.0-46.0); Hemoglobin 15.8 g/dL (12.2-16.2); Lymphocytes # (auto) 0.8 10 ^3/uL (0.4-5.4); Lymphocytes % (auto) 4.8 % (10.0-50.0); Mean Corpuscular Hemoglobin 30.8 pg (28.0-32.0); Mean Corpuscular Hgb Conc. 33.3 g/dL (32.0-36.0); Mean Corpuscular Volume 92.5 fL (80.0-100.0); Monocytes # (auto) 2.1 10 ^3/uL (0-1.3); Neutrophils # (auto) 13.1 10 ^3/uL (1.6-8.6); Neutrophils % (auto) 80.9 % (37.0-80.0); Platelet Count (auto) 304 10^3/uL (140-450); Red Blood Cells 5.13 10^6/uL (4.0-5.20); Red Cell Distribution Width 14.4 % (11.8-14.3); White Blood Cell 16.2 10^3/uL (4.4-10.8)
[2024-11-13 11:56] LABS: Chloride 99 mmol/L (98-107); Potassium 4.2 mmol/L (3.5-5.1); Sodium 136 mmol/L (136-145)
[2024-11-13 11:57] LABS: Anion Gap 12 (5-15); Calcium 10.2 mg/dL (8.7-10.4); Carbon Dioxide 25 mmol/L (20-31)
[2024-11-13 12:02] LABS: BUN/Creatinine Ratio 15.7 (10.0-20.0); Blood Urea Nitrogen 11 mg/dL (9-23); Glucose 193 mg/dL (74-106)
[2024-11-13 15:42] LABS: Urine Bacteria MANY /hpf (None Seen); Urine Blood TRACE /uL (Negative); Urine Clarity Turbid (Clear); Urine Color Yellow (Yellow); Urine Mucus FEW (None Seen); Urine Protein, UAD 2+ (Negative); Urine Specific Gravity 1.028 (1.001-1.035); Urine Squamous Epithelial Cell FEW /hpf (<5); Urine Urobilinogen Normal (Negative); Urine WBC 115 /HPF (0-5); Urine pH 5.5 (5.0-9.0)
[2024-11-13] MEDS: AZITHROMYCIN 250 MG TAB PO ONE (17:20)
[2024-11-13] MEDS: CEFEPIME 2GM/50ML NS 50 ML IV ONE (17:20)
[2024-11-13] MEDS: VANCOMYCIN 1GM/250ML KIT 200 ML IV ONE (18:19)
[2024-11-13 20:40] LABS: COVID19 ANTIGEN SOFIA FIA NEGATIVE (NEGATIVE); Rapid Influenza A Negative (Negative); Rapid Influenza B Negative (Negative)
[2024-11-13] MEDS: ALBUTEROL SULF 2.5 MG/0.5ML(0.5%) NEB SOLN NEB ONE (20:53)
[2024-11-13 23:45] VITALS: BP 142/75; PULSE 85; RESP 23; TEMP 98; O2SAT 97
== END 2024-11-14 00:17 | disposition short-term general hospital (02) ==
LOC: ER 10:47 → EDBD 10:47 → ER 11-14 00:17
DX: N39.0 Urinary tract infection, site not specified (principal); R07.9 Chest pain, unspecified; R53.1 Weakness; R06.02 Shortness of breath; I48.91 Unspecified atrial fibrillation; E11.9 Type 2 diabetes mellitus without complications; E78.5 Hyperlipidemia, unspecified; I10 Essential (primary) hypertension; I21.9 Acute myocardial infarction, unspecified; Z86.73 Personal history of transient ischemic attack (TIA), and cerebral infarction without residual deficits; Z98.890 Other specified postprocedural states; Z20.822 Contact with and (suspected) exposure to COVID-19
CPT/HCPCS: 36415; 71045; 80048; 81001; 83605; 83880; 84484; 85025; 87040; 87426; 87804; 93005; 94640; 96365; 96366; 96368; 99285; J0692; J3370

== ENCOUNTER 2025-04-06 10:28 | Emergency (ER) | payer OTHER ==
[~2025-04-06] VITALS: Ht 167.6 cm; Wt 109.0 kg
--- NOTE | 2025-04-06 10:41 | ED.PDOC ---
History of Present Illness HPI Comments 65 y.o female with a history of AFIB, IL, HTN, HLD, and a CVA with residual left-sided deficits and slurred speech, was brought to the ED by EMS. The patient presents with a three-day history of generalized weakness, dysuria, heartburn, and sweats. According to her spouse, the patient became weak and nearly fell, requiring assistance to the floor. Patient denies any nausea, vomiting, diarrhea, fever, chills, hematuria. Time Seen by MD: 10:28 Primary Care Provider: FAHEEM Reviewed Notes: Nurses Notes, Emergency Department Clinician Notes, Medications, Allergies Allergies: Coded Allergies: Penicillins (Verified Allergy, Unknown, 04/19/17) Home Meds Reported Medications Fluticasone-Salmeterol (Wixela Inhub 250-50 Mcg/Dose) 1 Aer Aer, 1 PUFF INH BID 11/06/24 Tiotropium [place] Monohydrate (Spiriva Respimat) 2.5 Mcg/Act Spr, 1 PUFF INH BID 11/06/24 Diltiazem HCl Coated Beads (Diltiazem Hydrochloride E) 180 Mg Cap, 1 CAP PO DAILY 11/06/24 Amiodarone HCl (Amiodarone HCl) 200 Mg Tab, 0.5 TAB PO DAILY 11/06/24 Potassium Chloride (POTASSIUM CHLORIDE CR) 10 Meq Tb, 2 TAB PO DAILY, TAB 07/08/22 Azathioprine (Azathioprine) 50 Mg Tab, 2 TAB PO DAILY 07/08/22 Metformin Hydrochloride (Metformin Hcl) 500 Mg Tab, 500 MG PO BIDWM for 30 Days, MG 07/08/22 Digoxin (Digoxin) 125 Mcg Tab, 125 MCG PO DAILY, TAB 07/08/22 Atorvastatin Calcium (ATORVASTATIN CALCIUM) 80 Mg Tab, 80 MG PO DAILY, TAB 07/08/22 Dabigatran Etexilate Mesylate (Pradaxa) 150 Mg Cap, 150 MG PO BID, CAP 07/08/22 Information Source: Patient, Emergency Med Personnel Mode of Arrival: EMS Severity: Moderate Timing: Days (3) Prehospital treatment: Accucheck (277) Past Medical History PAST MEDICAL HISTORY: AFIB, CVA, DM, High Lipids, HTN, IL Surgical History: Hernia Repair STUDY COORDINATOR History: No Pertinent STUDY COORDINATOR History Family History Family History: Reviewed,noncontributory to illness Social History Smoker: Non-Smoker Alcohol: Occasionally Drugs: Denies Drug Use Lives In: Home Constitutional: reports: sweats, weakness; denies: chills, diaphoresis, fatigue, fever, malaise, others EENTM: denies: blurred vision, double vision, ear bleeding, ear discharge, ear drainage, ear pain, ear ringing, eye pain, eye redness, hearing loss, mouth pain, mouth swelling, nasal discharge, nose bleeding, nose congestion, nose pain, photophobia, tearing, throat pain, throat swelling, voice changes, others Respiratory: denies: cough, hemoptysis, orthopnea, SOB at rest, shortness of breath, SOB with excertion, stridor, wheezing, others Cardiovascular: denies: chest pain, dizzy spells, diaphoresis, Dyspnea on exertion, edema, irregular heart beat, left arm pain, lightheadedness, palpitat ions, PND, syncope, others Gastrointestinal: reports: abdominal pain; denies: abdomen distended, blood streaked bowels, constipated, diarrhea, dysphagia, difficulty swallowing, hematemesis, melena, nausea, poor appetite, poor fluid intake, rectal bleeding, rectal pain, vomiting, others Genitourinary: reports: dysuria; denies: abnormal vagina bleeding, burning, dyspareunia, flank pain, frequency, hematuria, incontinence, pain, , vagina discharge, urgency, others Neurological: denies: dizziness, fainting, headache, left sided numbness, left sided weakness, numbness, paresthesia, pre-existing deficit, right sided numbness, right sided weakness, seizure, speech problems, tingling, tremors, weakness, others Musculoskeletal: denies: back pain, gout, joint pain, joint swelling, muscle pain, muscle stiffness, neck pain, others Integumetry: denies: bruises, change in color, change in hair/nails, dryness, laceration, lesions, lumps, rash, wounds, others Allergic/Immunocompromised: denies: Difficulty Healing, Frequent Infections, Hives, Itching, others Hematologic/Lymphatic: denies: anemia, blood clots, easy bleeding, easy bruising, swollen glands, others Endocrine: denies: excessive hunger, excessive sweating, excessive thirst, excessive urination, flushing, intolerance to cold, intolerance to heat, unexplained weight gain, unexplained weight loss, others Psychiatric: denies: anxiety, bipolar disorder, depression, hopeless, panic disorder, schizophrenia, sleepless, suicidal, others All Other Systems: Reviewed and Negative Physical Exam General Appearance: No Apparent Distress, Normal HEENT: Other (Poor dentition) Neck: Normal Inspection Respiratory: No Accessory Muscle Use, No Respiratory Distress Cardiovascular: Normal Peripheral Pulses, Regular Rate/Rhythm Breast Exam: Deferred Gastrointestinal: Diffuse, Tenderness Genitalia: Deferred Pelvic: Deferred Rectal: Deferred Extremities: NOT DONE Neurologic: Motor Weakness (left sided weakness noted due to previous CVA), Speech Problem (slurred speech noted from previous CVA ) Cerebellar Function: Unable to Test Reflexes: NOT DONE Skin: Dry, Normal Color Lymphatic: NOT DONE Was a procedure done? Was a procedure done?: No Differential Dx Considerations may include: Dehydration, Electrolyte imbalance, viral syndrome, sepsis, UTI X-Ray, Labs, Meds, VS Vital Signs Date Time Temp Pulse Resp B/P (MAP) Pulse Ox O2 Delivery O2 Flow Rate FiO2 04/06/25 10:43 77 04/06/25 10:40 98.7 81 30 124/47 93 98.7 Lab Test 04/06/25 10:53 Range/Units White Blood Count 13.5 H 4.4-10.8 10^3/uL Red Blood Count 4.96 4.0-5.20 10^6/uL Hemoglobin 14.9 12.2-16.2 g/dL Hematocrit 45.5 36.0-46.0 % Mean Corpuscular Volume 91.7 80.0-100.0 fL Mean Corpuscular Hemoglobin 30.1 28.0-32.0 pg Mean Corpuscular Hemoglobin Concent 32.8 32.0-36.0 g/dL Red Cell Distribution Width 14.1 11.8-14.3 % Platelet Count 316 140-450 10^3/uL Mean Platelet Volume 9.0 6.9-10.8 fL Neutrophils (%) (Auto) 90.6 H 37.0-80.0 % Lymphocytes (%) (Auto) 0.6 L 10.0-50.0 % Monocytes (%) (Auto) 7.9 0.0-12.0 % Eosinophils (%) (Auto) 0.2 0.0-7.0 % Basophils (%) (Auto) 0.7 0.0-2.0 % Neutrophils # (Auto) 12.2 H 1.6-8.6 10 ^3/uL Lymphocytes # (Auto) 0.1 L 0.4-5.4 10 ^3/uL Monocytes # (Auto) 1.1 0-1.3 10 ^3/uL Eosinophils # (Auto) 0 0-0.8 10 ^3/uL Basophils # (Auto) 0.1 0-0.2 10 ^3/uL Nucleated Red Blood Cells 0.0 % D-Dimer, Quantitative 0.52 H 0.0-0.49 mg/L FEU Sodium Level 142 136-145 mmol/L Potassium Level 3.6 3.5-5.1 mmol/L Chloride Level 100 98-107 mmol/L Carbon Dioxide Level 30 20-31 mmol/L Anion Gap 12 5-15 Blood Urea Nitrogen 15 9-23 mg/dL Creatinine 0.73 0.550-1.02 mg/dL Glomerular Filtration Rate Calc 91 >90 mL/min BUN/Creatinine Ratio 20.5 H 10.0-20.0 Serum Glucose 215 H 74-106 mg/dL Calcium Level 9.5 8.7-10.4 mg/dL Magnesium Level 1.6 1.6-2.6 mg/dL Total Bilirubin 1.8 H 0.2-1.0 mg/dL Aspartate Amino Transferase (AST) 631 H 13-40 U/L Alanine Aminotransferase (ALT) 348 H 7-40 U/L Alkaline Phosphatase 188 H 46-116 U/L Troponin I High Sensitivity < 3 L </=34 ng/L B-Type Natriuretic Peptide 65.76 0-100 pg/mL Total Protein 6.7 5.7-8.2 g/dL Albumin 4.4 3.2-4.8 g/dL Amylase Level 21 L 30-118 U/L Lipase 29 12-53 U/L Time of 1ST Reevaluation: 11:30 Reevaluation 1ST: Unchanged Patient Education/Counseling: Diagnosis, Treatment Family Education/Counseling: No Family Present SEPSIS Sepsis Screen Physician Orders Head Without Contrast (04/06/25 10:33) Urine Dip (04/06/25 ) Straight Cath. (04/06/25 ) Straight Cath Patient (04/06/25 10:33) Ct Ab Pel Wo Con-No Oral Or Iv (04/06/25 10:33) Troponin-I Hs (04/06/25 11:33) Troponin-I Hs (04/06/25 13:33) Urinalysis (04/06/25 11:20) Ct Angio Chest Contrast (04/06/25 13:28) Vital Signs Date Time Temp Pulse Resp B/P (MAP) Pulse Ox O2 Delivery O2 Flow Rate FiO2 04/06/25 10:43 77 04/06/25 10:40 98.7 81 30 124/47 93 98.7 Laboratory Tests Test 04/06/25 10:53 White Blood Count 13.5 10^3/uL (4.4-10.8) H Departure 1 Departure Time of Disposition: 12:26 Impression: Primary Impression: Acute chest pain Additional Impressions: Transaminitis Hyperglycemia Abdominal pain Disposition: ADMITTED INPATIENT Admit to: Tele Condition: Serious Critical Care Note Critical Care Time?: Yes (35 min-critical care time only) Critical care comment: Total critical care time: Approximately 34 minutes Due to a high probability of clinically significant, life threatening de terioration, the patient required my highest level of preparedness to intervene emergently and I personally spent this critical care time directly and personally managing the patient. This critical care time included obtaining a history; examining the patient; pulse oximetry; ordering and review of studies; arranging urgent treatment with development of a management plan; evaluation of patient's response to treatment; frequent reassessment; and, discussions with other providers. This critical care time was performed to assess and manage the high probability of imminent, life-threatening deterioration that could result in multi-organ failure. It was exclusive of separately billable procedures and treating other patients and teaching time. Please see MDM section and the rest of the note for further information on patient assessment and treatment. Stability Stability form required: No Heart Score Heart Score: Heart Score Response (Comments) Value History N/A 0 EKG N/A 0 Age N/A 0 Risk Factors N/A 0 Troponin N/A 0 Total 0 I personally scribed for TERELL CASTRO MD ([email or web address]) on 04/06/25 at 10:41. Electronically submitted by Kriss Holloway ([facility]). TERELL CASTRO MD Apr 06, 2025 10:41
--- NOTE | 2025-04-06 10:53 | ECG ---
[facility] Test Date: 2025-04-06 Test Time: 10:43:37 Pat Name: XENIA MOURA Department: [facility] ED Patient ID: [id number] Room: Gender: F Banquet Steward: LEV : 1960 Requested By: TERELL CASTRO Order Number: [id number] Reading MD: Gaurav King Measurements Intervals [place] Rate: 77 P: 93 HI: 207 QRS: 85 QRSD: 94 T: 224 QT: 473 QTc: 536 Interpretive Statements Sinus rhythm Borderline right axis deviation Low voltage, precordial leads Borderline repolarization abnormality Prolonged QT interval Electronically Signed On 04-09-2025 18:38:53 PDT by Gaurav King Please click the below link to view image of tracing.
[2025-04-06 11:34] LABS: Hematocrit 45.5 % (36.0-46.0); Hemoglobin 14.9 g/dL (12.2-16.2); Mean Corpuscular Hemoglobin 30.1 pg (28.0-32.0); Mean Corpuscular Volume 91.7 fL (80.0-100.0); Nucleated Red Blood Cells % 0.0 %
[2025-04-06 11:59] LABS: Albumin 4.4 g/dL (3.2-4.8); Anion Gap 12 (5-15); BUN/Creatinine Ratio 20.5 (10.0-20.0); Blood Urea Nitrogen 15 mg/dL (9-23); Calcium 9.5 mg/dL (8.7-10.4); Carbon Dioxide 30 mmol/L (20-31); Chloride 100 mmol/L (98-107); Potassium 3.6 mmol/L (3.5-5.1); Sodium 142 mmol/L (136-145); Total Protein 6.7 g/dL (5.7-8.2)
--- NOTE | 2025-04-06 11:59 | DVH ---
EXAM: CT HEAD WITHOUT CONTRAST INDICATION: weakness, hx of stroke TECHNIQUE: CT of the head without intravenous contrast. Radiation Dose : 1. Head: CT Dose: CTDI volume is 62.01 mGy. Dose-length product is 1097.79 mGy*cm The dose indicators for CT are the volume Computed Tomography (CT) Dose Index (CTDIvol) and the Dose Length Product (DLP), and are measured in units of mGy and mGy-cm, respectively. These indicators are not patient dose, but values generated from the CT scanner acquisition factors. The report includes radiation exposure data for exposures received during this examination. COMPARISON: None FINDINGS: There is no evidence of acute intracranial hemorrhage, extra-axial collection, mass effect, midline s hift, herniation or hydrocephalus. Chronic appearing lacunar infarcts of the right thalamus and bilateral to radiata. Increased prominence of the ventricles, sulci and cisterns is consistent with the sequelae of atrophi c cortical volume loss. The dorsey-white differentiation is intact. Moderate diffuse confluent periventricular and subcortical white matter hypoattenuation is nonspecifi c but may be related to small vessel ischemic disease. Moderate diffuse sinusitis. The mastoid air cells are clear. The surrounding soft tissues and osseous structures are unremarkable. IMPRESSION: 1. No acute intracranial abnormality. 2. Chronic appearing right thalamic and bilateral to radiata lacunar infarcts. 3. Chronic sequelae of microvascular disease and atrophic cortical volume loss. Radiation optimization: All CT scans at this facility use at least one of these dose optimization reji hniques: automated exposure control mA and/or kV adjustment per patient size (includes targeted exam s where dose is matched to clinical indication) or iterative reconstruction.
[2025-04-06 12:01] LABS: Alanine Aminotransferase 348 U/L (7-40); Alkaline Phosphatase 188 U/L (46-116); Bilirubin, Total 1.8 mg/dL (0.2-1.0); Glucose 215 mg/dL (74-106); Magnesium 1.6 mg/dL (1.6-2.6)
--- NOTE | 2025-04-06 12:06 | DVH ---
Exam: CT CT AB PEL WO CON-NO ORAL OR IV History: abd pain Comparison Study: [facility] on DOS: 07/07/22 Technique: Multidetector spiral CT of the abdomen was performed from lung bases to pubic symphysis. Imaging was performed without IV contrast. Axial, coronal and sagittal multiplanar reformats were ob tained from the axial data set by the technologist. Radiation Dose : 1. Abdomen/Pelvis: CTDIvol 26.2 mGy, DLP 3.92 mGy*cm. Findings: Evaluation of solid organs is limited due to lack of intravenous contrast use. Lung Bases: No acute or significant lung base finding. Normal heart size. No pleural or pericardial effusion. Liver: The liver is normal in size. No focal lesions. Gallbladder and Biliary Tree: Cholelithiasis. Drainage catheter is seen adjacent to but not within t he gallbladder Spleen: Unremarkable Pancreas: The pancreas is grossly normal in appearance. Adrenal Glands: Unremarkable Kidneys: Kidneys are grossly normal without calculi or hydronephrosis. Bladder: Grossly unremarkable for degree of distention. Bowel: The stomach is grossly normal in appearance. Small bowel and colon are normal in caliber and d istribution. The appendix is not visualized; however, no secondary findings of acute appendicitis id entified. Moderate to large colonic stool burden. Ascites: Absent Lymphadenopathy: No mesenteric, retroperitoneal or periportal lymphadenopathy. Abdominal Wall and Mesentery: Unremarkable. Vasculature: The visualized abdominal aorta is normal in size and caliber. Evaluation of abdominal a nd pelvic vessels is limited due to lack of intravenous contrast. Pelvic Organs: Unremarkable Musculoskeletal: No aggressive focal bony lesions, acute fractures or dislocation. IMPRESSION: 1. No acute abdominal or pelvic findings. 2. Cholelithiasis. Drainage catheter is seen adjacent to but not within the gallbladder 3. Moderate to large colonic stool burden Radiation optimization: All CT scans at this facility use at least one of these dose optimization rjei hniques: automated exposure control mA and/or kV adjustment per patient size (includes targeted exam s where dose is matched to clinical indication) or iterative reconstruction.
[2025-04-06 14:07] LABS: Lipase 29 U/L (12-53)
[2025-04-06 14:34] LABS: Amylase 21 U/L (30-118)
--- NOTE | 2025-04-06 15:42 | DVH ---
CTA Chest with intravenous contrast INDICATION: sob, elevated ddimer COMPARISON: None TECHNIQUE: Multidetector spiral CTA of the chest was performed of the chest with intravenous contrast . PULMONARY ANGIOGRAPHY PROTOCOL was utilized using a bolus-tracking technique centered on the main p ulmonary artery. Axial, coronal and sagittal multiplanar and MIP reformats were performed. Radiation Dose : 1. Chest: CTDI volume is 29.2 mGy. Dose-length product is 1.73 mGy*cm The dose indicators for CT are the volume Computed Tomography (CT) Dose Index (CTDIvol) and the Dose Length Product (DLP), and are measured in units of mGy and mGy-cm, respectively. These indicators are not patient dose, but values generated from the CT scanner acquisition factors. The report includes radiation exposure data for exposures received during this examination. Findings: Pulmonary artery: No pulmonary embolism Lower neck: Normal thyroid. Lungs: Moderate interstitial pulmonary edema. Heart/Vascular Structures: Cardiomegaly. Lymph Nodes: Mediastinal lymphadenopathy, for example a right paratracheal lymph node measuring up to 1.3 cm. Pleura: No pleural effusion or significant pneumothorax. Musculoskeletal: No acute osseous abnormality. Soft tissues: Normal. Upper abdomen: Limited portions of the upper abdomen are unremarkable. IMPRESSION: 1. No pulmonary embolism. 2. Moderate interstitial pulmonary edema in the setting of cardiomegaly 3. Mediastinal lymphadenopathy.
[2025-04-06] MEDS: IOHEXOL 350 MG/ML 100ML IJ ONE (15:45)
[2025-04-06] MEDS: FUROSEMIDE 40 MG/4 ML VIAL IV ONE (18:15)
[2025-04-06] MEDS: AZITHROMYCIN 500MG/ 250ML 250 ML IV ONE (18:16)
[2025-04-06 18:33] LABS: Urine Protein, UAD 2+ (Negative); Urine WBC Clumps PRESENT /hpf (None Seen)
[2025-04-06 18:34] VITALS: BP 124/75; PULSE 72; RESP 20; TEMP 98.7; O2SAT 95
== END 2025-04-06 18:22 | disposition short-term general hospital (02) ==
LOC: EDUNIT# 10:28 → EDBD 10:28 → ER 10:28
DX: R07.89 Other chest pain (principal); R74.01 Elevation of levels of liver transaminase levels; E11.65 Type 2 diabetes mellitus with hyperglycemia; R10.9 Unspecified abdominal pain; I10 Essential (primary) hypertension; J32.8 Other chronic sinusitis; E78.5 Hyperlipidemia, unspecified; I25.2 Old myocardial infarction; I48.91 Unspecified atrial fibrillation; F10.90 Alcohol use, unspecified, uncomplicated; Z79.899 Other long term (current) drug therapy; Z79.01 Long term (current) use of anticoagulants; Z79.51 Long term (current) use of inhaled steroids; Z79.624 Long term (current) use of inhibitors of nucleotide synthesis; Z79.631 Long term (current) use of antimetabolite agent; Z86.73 Personal history of transient ischemic attack (TIA), and cerebral infarction without residual deficits; Z88.0 Allergy status to penicillin; Z98.890 Other specified postprocedural states; Y90.9 Presence of alcohol in blood, level not specified
CPT/HCPCS: 36415; 70450; 71275; 74176; 80053; 81001; 82150; 83690; 83735; 83880; 84484; 85025; 85379; 93005; 96365; 96366; 96368; 96375; 99285; J0456; J0696; J1938; Q9967